=== PATIENT | female | born 1965 | race Caucasian/White ===

== ENCOUNTER → 2018-05-31 11:38 | Outpatient (CLI) | payer OTHER, SELFPAY ==
[2018-05-31 12:18] LABS: Add Manual Diff / Slide Review NO; Basophils Absolute Auto 0 /uL (0-100); Basophils Percent Auto 0.6 % (0-2); Eosinophils Absolute Auto 100 /uL (0-450); Eosinophils Percent Auto 1.8 % (2-4); Hematocrit 43.5 % (36-46); Hemoglobin 14.7 g/dL (12.0-16.0); Lymphocytes Absolute Auto 2300 /uL (1100-4500); Lymphocytes Percent Auto 34.9 % (25-40); Mean Corpuscular HGB Conc 33.7 % (30-36); Mean Corpuscular Hemoglobin 29.8 PG (26-34); Mean Corpuscular Volume 88.4 fL (80-100); Monocytes Absolute Auto 500 /uL (0-900); Monocytes Percent Auto 7.8 % (3-14); Neutrophils Absolute Auto 3600 /uL (1500-7000); Neutrophils Percent Auto 54.9 % (50-75); Platelet Count 250 X10^3/uL (150-400); Red Blood Cell Count 4.93 X10^6/uL (4.0-5.2); Red Cell Distribution Width 13.5 % (11.6-14.8); White Blood Cell Count 6.5 X10^3/uL (4.5-11.0)
[2018-05-31 12:44] LABS: Alanine Aminotransferase 24 IU/L (9-52); Albumin 4.4 g/dL (3.5-5.0); Albumin Globulin Ratio 1.5 (1.0-2.8); Alkaline Phosphatase 89 U/L (38-126); Aspartate Aminotransferase 25 IU/L (14-36); Bilirubin Total 0.3 mg/dL (0.2-1.3); Blood Urea Nitrogen 14 mg/dL (7-17); Calcium 9.3 mg/dL (8.4-10.2); Carbon Dioxide 23 mmol/L (22-32); Chloride 103 mmol/L (98-107); Cholesterol 200 mg/dL (140-199); Estimated Glomerular Filt Rate > 60.0 mL/min (>60); Globulin 2.9 g/dL (1.7-4.1); Glucose 95 mg/dL (70-100); HDL Cholesterol 83 mg/dL (40-60); HEMOLYSIS < 15 (0-50); LDL Cholesterol Calculated 92 mg/dL (<100); Potassium 4.3 mmol/L (3.4-5.1); Sodium 136 mmol/L (137-145); Total Protein 7.3 g/dL (6.3-8.2); Triglycerides 123 mg/dL (35-150)
[2018-05-31 13:13] LABS: TSH w/ Reflex to FT4 2.41 uIU/mL (0.47-4.68)
[2018-05-31 16:02] LABS: Vitamin D 25 Hydroxy (D3) 22.9 ng/mL (30.0-100.0)
== END ==
PROVIDERS: Visit Provider Internal Medicine
DX: Z00.00 Encounter for general adult medical examination without abnormal findings (principal); F32.5 Major depressive disorder, single episode, in full remission; R35.0 Frequency of micturition; E55.9 Vitamin D deficiency, unspecified
CPT/HCPCS: 36415; 80053; 80061; 82306; 84443; 85025

== ENCOUNTER → 2018-06-27 10:08 | Outpatient (CLI) | payer OTHER, SELFPAY ==
--- NOTE | 2018-06-27 | DI.MG.S_ITS ---
BILATERAL DIGITAL SCREENING MAMMOGRAM 3D/2D WITH CAD: 06/27/2018 CLINICAL: Routine screening. Comparison is made to exams dated: 06/22/2012 mammogram and 03/05/2010 mammogram - [facility]. There are scattered fibroglandular elements in both breasts. Current study was also evaluated with a Computer Aided Detection (CAD) system. No significant masses, calcifications, or other findings are seen in either breast. There has been no significant interval change. IMPRESSION: NEGATIVE There is no mammographic evidence of malignancy. A 1 year screening mammogram is recommended. This exam was interpreted at Station ID: [id number]. NOTE: For mammograms, a report in lay terms will be sent to the patient. Approximately 15% of breast malignancies will not be visualized mammographically. In the management of a palpable breast mass, a negative mammogram must not discourage biopsy of a clinically suspicious lesion. Electronically Signed By: Kimmie benavides/sam:06/27/2018 15:33:43 letter sent: Normal Exam ACR BI-RADS Category 1: Negative [id number]
== END ==
PROVIDERS: Visit Provider Internal Medicine
DX: Z00.00 Encounter for general adult medical examination without abnormal findings (principal); Z12.31 Encounter for screening mammogram for malignant neoplasm of breast; M85.88 Other specified disorders of bone density and structure, other site; Z78.0 Asymptomatic menopausal state; Z82.62 Family history of osteoporosis; Z90.722 Acquired absence of ovaries, bilateral; Z90.710 Acquired absence of both cervix and uterus
CPT/HCPCS: 77063; 77067; 77080; 77081

== ENCOUNTER → 2018-07-06 12:19 | Outpatient (CLI) | payer OTHER, SELFPAY ==
--- NOTE | 2018-07-06 | DI.RAD.S_ITS ---
PROCEDURE: XR HAND RT MIN 3V INDICATIONS: RIGHT HAND PAIN TECHNIQUE: 3 views of the hand(s) acquired. COMPARISON: None. FINDINGS: Bones: No fractures or dislocations there is a mild degree of degenerative osteophytic joint space narrowing along the interphalangeal joints distally.. Carpal bones are normally aligned. No suspicious bony lesions. Soft tissues: No suspicious soft tissue calcifications. IMPRESSION: Mild osteoarthritis, no trauma found. Dictated by: Marcus Drake M.D. on 07/06/2018 at 13:19 Approved by: Marcus Drake M.D. on 07/06/2018 at 13:20
== END ==
PROVIDERS: PCP Internal Medicine; Visit Provider Internal Medicine
DX: M79.641 Pain in right hand (principal); M19.041 Primary osteoarthritis, right hand
CPT/HCPCS: 73130

== ENCOUNTER 2018-07-25 06:20 | Emergency (ER) | payer OTHER, SELFPAY ==
[2018-07-25 06:26] VITALS: BP 145/80; PULSE 94; RESP 20; TEMP 36.8; O2SAT 97; BMI 32.3
--- NOTE | 2018-07-25 06:32 | DI.RAD.S_ITS ---
PROCEDURE: XR CHEST 1V INDICATIONS: Coughing for several days TECHNIQUE: One view of the chest was acquired. COMPARISON: None. FINDINGS: Surgical changes and devices: Cervical fixation hardware is grossly intact. Lungs and pleura: Lungs are clear. No pleural effusions or pneumothorax. Mediastinum: Mediastinal contours appear normal. Heart size is normal. Bones and chest wall: Focal radiopacity projected over the right upper quadrant may represent a gallstone, but is incompletely characterized. IMPRESSION: 1. No acute cardiopulmonary findings. 2. Probable cholelithiasis, incompletely characterized. Right upper quadrant ultrasound could be used to further characterization is warranted. Dictated by: Alicia Dyer M.D. on 07/25/2018 at 8:56 Approved by: Alicia Dyer M.D. on 07/25/2018 at 8:58
--- NOTE | 2018-07-25 06:39 | ED.URI ---
HPI - URI/Sore Throat General Chief Complaint: Upper Respiratory Symptoms Stated Complaint: Trouble breathing, cough Time Seen by Provider: 07/25/18 06:32 Source: patient Mode of arrival: ambulatory Limitations: no limitations History of Present Illness HPI Narrative: Patient is a 52-year-old female here for evaluation approximately 7 days of sinus congestion, postnasal drip, productive cough, had chest heaviness, chest tightness, she has been taking Claritin D and Mucinex. No rashes. Related Data Previous Rx's Medication Instructions Recorded albuterol sulfate 2 puff INHALATION Q4-6H PRN #18 07/25/18 gram azithromycin See Rx Instructions .ROUTE 07/25/18 .COMPLEX #6 tab Review of Systems Constitutional Reports malaise Cardiovascular Denies chest pain Respiratory Comments: Chest congestion with cough and heaviness Gastrointestinal Gastrointestinal: Denies abdominal pain Integumentary/Breasts Denies rash Hematologic/Lymphatic Denies easy bleeding and Denies easy bruising PFSH Surgical History No pertinent past surgical history (Acute) Social History Smoking Status: Never smoker Social History Smoking Status: Never smoker Exam Initial Vital Signs Initial Vital Signs: Vital Signs Temperature 98.2 F 07/25/18 06:26 Pulse Rate 94 H 07/25/18 06:26 Respiratory Rate 20 07/25/18 06:26 Blood Pressure 145/80 H 07/25/18 06:26 Pulse Oximetry 97 07/25/18 06:26 Const General: cooperative, comfortable, well developed, well groomed and No acute distress Orientation: alert, awake and oriented x3 HENMT Head: normal to inspection and normocephalic Ears: TM's normal bilaterally Nose: external nose normal Face and sinus: normal facial exam Throat: other (Posterior oropharynx red) Resp Effort & Inspection: normal respiratory effort Auscultation: clear to auscultation bilaterally Cardio Rate: regular rate Rhythm: regular rhythm Skin Lesions: no lesions Rashes: no rashes Neuro General: alert and awake Cognition: normal cognition Extrem General: normal to inspection and capillary refill normal Psych Appearance: grossly normal and well kempt Course Orders Ordered: ED Orders 07/25/18 06:32 XR chest 1V Stat Vital Signs - 8 hr 07/25/18 06:26 Temperature 98.2 F Pulse Rate 94 H Respiratory Rate 20 Blood Pressure 145/80 H Pulse Oximetry 97 MDM - URI/Sore Throat Imaging Data Chest x-ray: Attestation: I personally reviewed and interpreted this imaging study as follows: My impression: Atypical pneumonia MDM Narrative Medical decision making narrative: Patient is not hypoxic, not tachypneic, chest x-ray does have some concern for an atypical pneumonia. She has been on decongestants. Will send home with azithromycin. She states she is allergic to erythromycin but can take azithromycin without any problems. She is given return precautions. She expressed understanding and agreement with plan. Discharge Plan Departure Patient Disposition: Home Clinical Impression: Atypical pneumonia Instructions: DI for Atypical Pneumonia Activity Restrictions/Additional Instructions: Take the antibiotics as directed. Call your primary doctor for follow-up. Return to the emergency department for any new or worsening symptoms Prescriptions: New azithromycin 250 mg tablet See Rx Instructions .ROUTE .COMPLEX Qty: 6 RF: 0 albuterol sulfate 90 mcg/actuation HFA aerosol inhaler 2 puff INHALATION Q4-6H PRN (Reason: shortness of breath or wheezing) Qty: 18 RF: 0 Referrals: Radha Tan MD [Primary Care Provider] -
== END 2018-07-25 07:50 | disposition home or self-care (01) ==
PROVIDERS: Emergency Provider Emergency Medicine; PCP Internal Medicine
DX: J18.9 Pneumonia, unspecified organism (principal)
CPT/HCPCS: 71045; 99282; 99283

== ENCOUNTER → 2018-11-15 18:29 | Outpatient (CLI) | payer OTHER, SELFPAY | PROVIDERS: PCP Internal Medicine | DX: Z23 Encounter for immunization (principal) | CPT/HCPCS: 90471; 90686 ==

== ENCOUNTER → 2018-11-22 11:59 | Outpatient (ROUT) | payer OTHER, SELFPAY ==
[2018-11-22 12:23] LABS: Influenza A and B by PCR Rapid Negative (Negative)
== END ==
PROVIDERS: PCP Internal Medicine; Visit Provider Nurse Practitioner Family
DX: R52 Pain, unspecified (principal); R09.89 Other specified symptoms and signs involving the circulatory and respiratory systems
CPT/HCPCS: 87400; 87502

== ENCOUNTER 2019-07-10 12:47 | Emergency (ER) | payer OTHER, SELFPAY ==
[2019-07-10 13:00] VITALS: BP 139/62; PULSE 107; RESP 20; TEMP 36.9; O2SAT 98; BMI 32.3
[2019-07-10 13:24] VITALS: PULSE 84
--- NOTE | 2019-07-10 13:50 | ED_ITS ---
HPI - GI Bleed <LOKI Pastor - Last Filed: 07/10/19 21:22> General Chief complaint: GI Bleed Stated complaint: rectum bleeding Time Seen by Provider: 07/10/19 12:56 Source: patient Mode of arrival: Ambulatory Limitations: no limitations History of Present Illness HPI Narrative: 53yo female with a history of a hysterectomy, IBS, and family history of colon cancer on her mother's side, presents emergency department for rectal bleeding. Patient states she has had intermittent bright red blood in her stool for the past 9 months. Patient states originally she just found a blood on the toilet paper after having a bowel movement approximately once every 3 weeks. However, frequency and amount of blood have increased over the past few weeks. Patient states she had a bowel movement on Monday with a large amount of bright red blood in the toilet and on the toilet paper. Today she went to the bathroom and noticed red blood and blood clots, patient reports a small amount of blood tripped on the floor. Patient states she tends to have more blood when her stools are larger. Patient denies any other symptoms such as abdominal pain, nausea, vomiting, diarrhea, chest pain, shortness of breath, constipation, diarrhea, or mucus in stools. She states she does have IBS has in termittent soft stools and constipation. She last had a colonoscopy approximately 7 8 years ago without any concern. Patient states she does take Benadryl, melatonin, and ibuprofen every night for the past few years. Related Data Previous Rx's Medication Instructions Recorded albuterol sulfate 2 puff INHALATION Q4-6H PRN #18 07/25/18 gram azithromycin See Rx Instructions .ROUTE 07/25/18 .COMPLEX #6 tab Review of Systems <LOKI Pastor - Last Filed: 07/10/19 21:22> Review of Systems Narrative: REVIEW OF SYSTEMS: GENERAL: Denies fever, chills, malaise, or wt. loss. HENT: No head trauma. CARDIOVASCULAR: No chest pain. RESPIRATORY: No shortness of breath or cough. GASTROINTESTINAL: Reports rectal bleeding, see HPI. GENITOURINARY: No flank pain or dysuria. No vaginal discharge, reports hysterectomy, see HPI. MUSCULOSKELETAL: No pain, weakness, or trauma. INTEGUMENTARY: No rash, lesions, or pruritus. NEURO: No numbness, tingling. PSYCH: Patient reports increased anxiety due to family history of cancer, see HPI. Patient History <LOKI Pastor - Last Filed: 07/10/19 21:22> Surgical History History of hysterectomy (Acute) No pertinent past surgical history (Acute) Social History Smoking Status: Never smoker Smoking Status: Never smoker Substance Use Type: does not use Exam <LOKI Pastor - Last Filed: 07/10/19 21:22> Initial Vital Signs Initial Vital Signs: Vital Signs Temperature 98.5 F 07/10/19 13:00 Pulse Rate 107 H 07/10/19 13:00 Respiratory Rate 07/10/19 13:00 Blood Pressure 139/62 07/10/19 13:00 Pulse Oximetry 98 07/10/19 13:00 PHYSICAL EXAMINATION: GENERAL: Well groomed, alert, and cooperative. Patient tearful and appears anxious. Answers questions promptly and appropriately. Vital signs noted. HENT: Normocephalic, atraumatic. Hearing intact. Oral mucosa is pink and moist. EYES: Conjunctiva pink, sclera white, no periorbital swelling. CARDIOVASCULAR: S1 and S2 sounds normal. Regular rate and rhythm, no murmurs, clicks, or bruits. No pedal edema. RESPIRATORY: Normal respiratory rate, trachea midline, airway patent. No stridor, nasal flaring or accessory muscle use. Lungs are clear in all lopes without wheeze, rhonchi, or crackles. GASTROINTESTINAL: Bowel sounds normoactive. Abdomen is soft and non-tender. No organomegaly, no palpable masses. RECTAL: No external hemorrhoids or fissures, small amount of bright red blood noted around and in rectum, tenderness with examination. GENITALURINARY: No flank tenderness. MUSCULOSKELETAL: Normal gait and coordination. Equal tone and mass bilaterally. EXTREMITIES: CMS intact, no pedal edema. SKIN: Warm, dry, soft, appropriate color for ethnicity. No lesions, rashes, or wounds to visualized areas. NEURO: Alert and Oriented X 3. Good coordination. No ataxia, or sensory deficits, or cognitive issues. PSYCH: Appropriate affect and mood. <Lui Borges DO - Last Filed: 07/11/19 07:08> Initial Vital Signs Initial Vital Signs: Vital Signs Temperature 98.5 F 07/10/19 13:00 Pulse Rate 107 H 07/10/19 13:00 Respiratory Rate 20 07/10/19 13:00 Blood Pressure 139/62 07/10/19 13:00 Pulse Oximetry 98 07/10/19 13:00 Course <LOKI Pastor - Last Filed: 07/10/19 21:22> Course Course Narrative: Patient was updated on plan of care, denies any continuing pain. Explained follow-up instructions. All questions answered. Orders Ordered: Discontinued Medications Pantoprazole Sodium (Protonix) 80 mg IV NOW ONE Stop: 07/10/19 13:34 Last Admin: 07/10/19 14:05 Dose: 80 mg Documented by: ELMA Consultations Consultation #1: Patient staffed with Dr. Borges discussed test and test results. Vital Signs Vital signs: Vital Signs - 8 hr 07/10/19 13:24 07/10/19 14:28 07/10/19 15:12 Temperature 97.4 F L Pulse Rate 84 74 78 Respiratory Rate 16 18 Blood Pressure 138/72 Blood Pressure [Left Arm] 134/64 Pulse Oximetry 99 99 <Lui Borges DO - Last Filed: 07/11/19 07:08> Orders Ordered: Discontinued Medications Pantoprazole Sodium (Protonix) 80 mg IV NOW ONE Stop: 07/10/19 13:34 Last Admin: 07/10/19 14:05 Dose: 80 mg Documented by: ELMA Vital Signs Vital signs: Vital Signs - 8 hr 07/10/19 13:24 07/10/19 14:28 07/10/19 15:12 Temperature 97.4 F L Pulse Rate 84 74 78 Respiratory Rate 16 18 Blood Pressure 138/72 Blood Pressure [Left Arm] 134/64 Pulse Oximetry 99 99 MDM - GI Bleed <LOKI Pastor - Last Filed: 07/10/19 21:22> Medical Records Attestation: I reviewed the patient's medical records. Lab Data Attestation: I reviewed the patient's lab results. Result diagrams: 07/10/19 13:45 07/10/19 13:45 Labs: Lab Results 07/10/19 07/10/19 07/10/19 Range/Units 13:45 13:45 13:45 WBC 5.0 (4.5-11.0) X10^3/uL RBC 4.49 (4.0-5.2) X10^6/uL Hgb 13.6 (12.0-16.0) g/dL Hct 39.6 (36-46) % MCV 88.3 (80-100) fL MCH 30.2 (26-34) PG MCHC 34.2 (30-36) % RDW 13.4 (11.6-14.8) % Plt Count 231 (150-400) X10^3/uL Neut % (Auto) 58.3 (50-75) % Lymph % (Auto) 31.3 (25-40) % Independence % (Auto) 7.0 (3-14) % Eos % (Auto) 2.6 (2-4) % Baso % (Auto) 0.8 (0-2) % Neut # (Auto) 2900 (0895-5251) /uL Lymph # (Auto) 1600 (6175-5342) /uL Independence # (Auto) 300 (0-900) /uL Eos # (Auto) 100 (0-450) /uL Baso # (Auto) 0 (0-100) /uL PT 10.7 (10.1-12.7) SECONDS INR 0.9 (0.9-1.3) APTT 30 (26.4-36.2) SECONDS Sodium 140 (137-145) mmol/L Potassium 3.8 (3.4-5.1) mmol/L Chloride 108 H (98-107) mmol/L Carbon Dioxide 24 (22-32) mmol/L BUN 21 H (7-17) mg/dL Creatinine 0.78 (0.52-1.04) mg/dL Estimated GFR > 60.0 (>60) mL/min BUN/Creatinine Ratio 26.9 H (6-22) Glucose 144 H (70-100) mg/dL Calcium 9.2 (8.4-10.2) mg/dL Total Bilirubin 0.3 (0.2-1.3) mg/dL AST 27 (14-36) IU/L ALT 20 (<35) IU/L Alkaline Phosphatase 88 (38-126) U/L Total Protein 7.1 (6.3-8.2) g/dL Albumin 4.0 (3.5-5.0) g/dL Globulin 3.1 (1.7-4.1) g/dL Albumin/Globulin Ratio 1.3 (1.0-2.8) Blood Type Antibody Screen 07/10/19 Range/Units 13:45 WBC (4.5-11.0) X10^3/uL RBC (4.0-5.2) X10^6/uL Hgb (12.0-16.0) g/dL Hct (36-46) % MCV (80-100) fL MCH (26-34) PG MCHC (30-36) % RDW (11.6-14.8) % Plt Count (150-400) X10^3/uL Neut % (Auto) (50-75) % Lymph % (Auto) (25-40) % Independence % (Auto) (3-14) % Eos % (Auto) (2-4) % Baso % (Auto) (0-2) % Neut # (Auto) (3125-1248) /uL Lymph # (Auto) (1163-8986) /uL Independence # (Auto) (0-900) /uL Eos # (Auto) (0-450) /uL Baso # (Auto) (0-100) /uL PT (10.1-12.7) SECONDS INR (0.9-1.3) APTT (26.4-36.2) SECONDS Sodium (137-145) mmol/L Potassium (3.4-5.1) mmol/L Chloride (98-107) mmol/L Carbon Dioxide (22-32) mmol/L BUN (7-17) mg/dL Creatinine (0.52-1.04) mg/dL Estimated GFR (>60) mL/min BUN/Creatinine Ratio (6-22) Glucose (70-100) mg/dL Calcium (8.4-10.2) mg/dL Total Bilirubin (0.2-1.3) mg/dL AST (14-36) IU/L ALT (<35) IU/L Alkaline Phosphatase (38-126) U/L Total Protein (6.3-8.2) g/dL Albumin (3.5-5.0) g/dL Globulin (1.7-4.1) g/dL Albumin/Globulin Ratio (1.0-2.8) Blood Type O Positive Antibody Screen Negative MDM Narrative Medical decision making narrative: 53-year-old female presenting to the emergency department for intermittent bright red rectal bleeding. Differential includes internal hemorrhoids versus fissures due to intermittent episodes of bright red blood that occur only with stooling, increased blood with large stools, history of IBS, and lack of other severe symptoms such as abdominal pain or vomiting. External hemorrhoids or fissures not visualized. Malignancy cannot be excluded without a colonoscopy, patient does have a strong family history but denies other concerning symptoms such as pain, difficulty with passing stool, or feeling incomplete passage of stool. Less likely upper GI bleed due to lack of dark red appearance, blood only appears after formed stool, lack of abdominal pain, and lack of vomiting. However, patient does report she takes and ibuprofen almost every night due to pain. She was encouraged to discontinue the ibuprofen and take Tylenol if needed for pain. Less likely autoimmune disorders such as colitis or Crohn's due to lack of abdominal pain, significant stool changes, or history of autoimmune disorders. Patient is hemodynamically stable, H&H within normal limits, no orthostatics symptoms and there is less concern for excessive bleeding due to prolonged duration of symptoms, vital signs, patient appearance and labs. Patient was safe for discharge with close follow-up. CT not indicated due to lack of abdominal pain. Patient was encouraged to follow up with her primary care provider or the surgeons for colonoscopy for further evaluation of her rectal bleeding.. <Lui Borges, DO - Last Filed: 07/11/19 07:08> Lab Data Labs: Lab Results 07/10/19 07/10/19 07/10/19 Range/Units 13:45 13:45 13:45 WBC 5.0 (4.5-11.0) X10^3/uL RBC 4.49 (4.0-5.2) X10^6/uL Hgb 13.6 (12.0-16.0) g/dL Hct 39.6 (36-46) % MCV 88.3 (80-100) fL MCH 30.2 (26-34) PG MCHC 34.2 (30-36) % RDW 13.4 (11.6-14.8) % Plt Count 231 (150-400) X10^3/uL Neut % (Auto) 58.3 (50-75) % Lymph % (Auto) 31.3 (25-40) % Independence % (Auto) 7.0 (3-14) % Eos % (Auto) 2.6 (2-4) % Baso % (Auto) 0.8 (0-2) % Neut # (Auto) 2900 (9875-0008) /uL Lymph # (Auto) 1600 (3561-0862) /uL Independence # (Auto) 300 (0-900) /uL Eos # (Auto) 100 (0-450) /uL Baso # (Auto) 0 (0-100) /uL PT 10.7 (10.1-12.7) SECONDS INR 0.9 (0.9-1.3) APTT 30 (26.4-36.2) SECONDS Sodium 140 (137-145) mmol/L Potassium 3.8 (3.4-5.1) mmol/L Chloride 108 H (98-107) mmol/L Carbon Dioxide 24 (22-32) mmol/L BUN 21 H (7-17) mg/dL Creatinine 0.78 (0.52-1.04) mg/dL Estimated GFR > 60.0 (>60) mL/min BUN/Creatinine Ratio 26.9 H (6-22) Glucose 144 H (70-100) mg/dL Calcium 9.2 (8.4-10.2) mg/dL Total Bilirubin 0.3 (0.2-1.3) mg/dL AST 27 (14-36) IU/L ALT 20 (<35) IU/L Alkaline Phosphatase 88 (38-126) U/L Total Protein 7.1 (6.3-8.2) g/dL Albumin 4.0 (3.5-5.0) g/dL Globulin 3.1 (1.7-4.1) g/dL Albumin/Globulin Ratio 1.3 (1.0-2.8) Blood Type Antibody Screen 07/10/19 Range/Units 13:45 WBC (4.5-11.0) X10^3/uL RBC (4.0-5.2) X10^6/uL Hgb (12.0-16.0) g/dL Hct (36-46) % MCV (80-100) fL MCH (26-34) PG MCHC (30-36) % RDW (11.6-14.8) % Plt Count (150-400) X10^3/uL Neut % (Auto) (50-75) % Lymph % (Auto) (25-40) % Independence % (Auto) (3-14) % Eos % (Auto) (2-4) % Baso % (Auto) (0-2) % Neut # (Auto) (3334-3233) /uL Lymph # (Auto) (3622-7734) /uL Independence # (Auto) (0-900) /uL Eos # (Auto) (0-450) /uL Baso # (Auto) (0-100) /uL PT (10.1-12.7) SECONDS INR (0.9-1.3) APTT (26.4-36.2) SECONDS Sodium (137-145) mmol/L Potassium (3.4-5.1) mmol/L Chloride (98-107) mmol/L Carbon Dioxide (22-32) mmol/L BUN (7-17) mg/dL Creatinine (0.52-1.04) mg/dL Estimated GFR (>60) mL/min BUN/Creatinine Ratio (6-22) Glucose (70-100) mg/dL Calcium (8.4-10.2) mg/dL Total Bilirubin (0.2-1.3) mg/dL AST (14-36) IU/L ALT (<35) IU/L Alkaline Phosphatase (38-126) U/L Total Protein (6.3-8.2) g/dL Albumin (3.5-5.0) g/dL Globulin (1.7-4.1) g/dL Albumin/Globulin Ratio (1.0-2.8) Blood Type O Positive Antibody Screen Negative Discharge Plan Departure Patient Disposition: Home Clinical Impression: Rectal bleed Discharge Date/Time: 07/10/19 15:12 Instructions: DI for Rectal Bleeding Activity Restrictions/Additional Instructions: Thank you for entrusting me with your care today. As discussed, Your laboratory results are non-remarkable. Slightly increased glucose at 144 and BUN of 21, this can most likely be to some mild dehydration and recent oral intake. However, I do recommend following up with your primary care provider about these lab values. Please discontinue taking ibuprofen, Advil, Aleve, or naproxen. You may take Tylenol as needed for pain. Please call the surgeon's office to schedule an appointment. [facility]: [phone]. Return to the emergency department for any new or worsening symptoms such as abdominal pain, increased bleeding, dizziness, syncope, chest pain, fevers, or any other concerns. Prescriptions: No Action azithromycin 250 mg tablet See Rx Instructions .ROUTE .COMPLEX Qty: 6 RF: 0 albuterol sulfate 90 mcg/actuation HFA aerosol inhaler 2 puff INHALATION Q4-6H PRN (Reason: shortness of breath or wheezing) Qty: 18 RF: 0 Referrals: Jean Juarez MD [Physician] - (Referral for colonoscopy, rectal bleeding x 9months, worse in last few weeks, no external hemorrhoids. Family history of colon cancer.) Adriana Cervantes ARNP [Primary Care Provider] - Stand Alone Forms: Work Release Note <Lui Borges, - Last Filed: 07/11/19 07:08> Cosign ED Attending Cosignature Attestation: Dr Borges Co-Sign Statement: I was available for consultation during this patient's emergency department visit. This chart is signed by myself for administrative purposes only. I did not have direct contact with this patient during this visit. They were seen independently by the APC.
[2019-07-10 13:53] LABS: Add Manual Diff / Slide Review NO; Basophils Absolute Auto 0 /uL (0-100); Basophils Percent Auto 0.8 % (0-2); Eosinophils Absolute Auto 100 /uL (0-450); Eosinophils Percent Auto 2.6 % (2-4); Hematocrit 39.6 % (36-46); Hemoglobin 13.6 g/dL (12.0-16.0); Lymphocytes Absolute Auto 1600 /uL (1100-4500); Lymphocytes Percent Auto 31.3 % (25-40); Mean Corpuscular HGB Conc 34.2 % (30-36); Mean Corpuscular Hemoglobin 30.2 PG (26-34); Mean Corpuscular Volume 88.3 fL (80-100); Monocytes Absolute Auto 300 /uL (0-900); Neutrophils Absolute Auto 2900 /uL (1500-7000); Neutrophils Percent Auto 58.3 % (50-75); Platelet Count 231 X10^3/uL (150-400); Red Blood Cell Count 4.49 X10^6/uL (4.0-5.2); Red Cell Distribution Width 13.4 % (11.6-14.8)
[2019-07-10 14:00] LABS: INR 0.9 (0.9-1.3); Prothrombin Time 10.7 SECONDS (10.1-12.7)
[2019-07-10 14:03] LABS: PTT Partial Thromboplastin Tim 30 SECONDS (26.4-36.2)
[2019-07-10 14:05] LABS: Alanine Aminotransferase 20 IU/L (<35); Albumin Globulin Ratio 1.3 (1.0-2.8); Alkaline Phosphatase 88 U/L (38-126); Aspartate Aminotransferase 27 IU/L (14-36); BUN Creatinine Ratio 26.9 (6-22); Bilirubin Total 0.3 mg/dL (0.2-1.3); Blood Urea Nitrogen 21 mg/dL (7-17); Calcium 9.2 mg/dL (8.4-10.2); Carbon Dioxide 24 mmol/L (22-32); Chloride 108 mmol/L (98-107); Estimated Glomerular Filt Rate > 60.0 mL/min (>60); Globulin 3.1 g/dL (1.7-4.1); Glucose 144 mg/dL (70-100); HEMOLYSIS < 15 (0-50); Potassium 3.8 mmol/L (3.4-5.1); Sodium 140 mmol/L (137-145); Total Protein 7.1 g/dL (6.3-8.2)
[2019-07-10] MEDS: PANTOPRAZOLE 40 MG VIAL 80 MG IV (14:05)
[2019-07-10 14:28] VITALS: BP 134/64; PULSE 74; RESP 16; O2SAT 99
--- NOTE | 2019-07-10 14:29 | PC.NURSE ---
Sarmad performed rectal exam - bright blood noted on gloves;
[2019-07-10 15:12] VITALS: BP 138/72; PULSE 78; RESP 18; TEMP 36.3; O2SAT 99
== END 2019-07-10 15:12 | disposition home or self-care (01) ==
PROVIDERS: Emergency Provider Nurse Practitioner; PCP Internal Medicine
DX: K62.5 Hemorrhage of anus and rectum (principal)
CPT/HCPCS: 36415; 80053; 85025; 85610; 85730; 86850; 86900; 86901; 96374; 99284; C9113

== ENCOUNTER 2019-07-22 13:59 | Day surgery (SDC) | payer OTHER, SELFPAY ==
--- NOTE | 2019-07-22 | PATH_ITS ---
[facility] Accession Number: [id number] . 01 Material submitted: . PART A: duodenum - DUODENUM PART B: stomach - ANTRUM PART C: stomach - FUNDUS PART D: gastrointestinal site - BODY PART E: esophagus - DISTAL ESOPHAGUS PART F: esophagus, E-G Junction - GE JUNCTION 12 O'CLOCK PART G: colon - ASCENDING COLON POLYP 2MM . 01 Diagnosis: A. Duodenum, Biopsy: Duodenal mucosa with no diagnostic abnormality. Negative for active inflammation, features of sprue, dysplasia, or malignancy. . B. Antrum, Biopsy: Gastric antral mucosa with mild chronic inflammation and intestinal metaplasia. Intestinal metaplasia present in one of one biopsy fragments. Negative for Helicobacter organism by immunohistochemistry. Negative for dysplasia or malignancy. . C. Fundus, Biopsy: Gastric body-type mucosa with mild chronic inflammation. No evidence of Helicobacter organisms on H/E stain. Negative for intestinal metaplasia. Negative for dysplasia or malignancy. . D. Stomach, Body, Biopsy: Gastric body mucosa with mild chronic inflammation. Negative for Helicobacter organisms by immunohistochemistry. Negative for intestinal metaplasia. Negative for dysplasia or malignancy. . E. Distal Esophagus, Biopsy: Proximal gastric-type mucosa with mild chronic inflammation. Negative for specialized intestinal metaplasia. Negative for dysplasia or malignancy. . F. Gastroesophageal Junction, 12 o'clock, Biopsy: Squamous epithelium with no diagnostic abnormality. No columnar mucosa present for evaluation. Intraepithelial eosinophils are not increased. Negative for dysplasia and malignancy. . G. Ascending Colon Polyp, 2 mm, Biopsy: Tubular adenoma. [facility] 07/25/2019 1356 Local . 01 Electronically signed: . Seamus Ceron MD, PhD, Pathologist NPI- [id number] . 01 Gross description: . Part A: DUODENUM: Received in formalin is 1 fragment(s) of ortiz, soft tissue measuring 0.3 x 0.2 x 0.1 cm submitted entirely in 1 cassette(s) Part B: ANTRUM: Received in formalin is 1 fragment(s) of ortiz, soft tissue measuring 0.3 x 0.1 x 0.1 cm submitted entirely in 1 cassette(s) Part C: FUNDUS: Received in formalin are 2 fragment(s) of ortiz, soft tissue measuring 0.6 x 0.2 x 0.1 cm to 0.2 x 0.2 x 0.1 cm submitted entirely in 1 cassette(s) Part D: BODY: Received in formalin are 2 fragment(s) of ortiz, soft tissue measuring 0.3 x 0.3 x 0.1 cm to 0.1 x 0.1 x 0.1 cm submitted entirely in 1 cassette(s) Part E: DISTAL ESOPHAGUS: Received in formalin is 1 fragment(s) of ortiz, soft tissue measuring 0.2 x 0.2 x 0.2 cm submitted entirely in 1 cassette(s) Part F: GE JUNCTION 12 O'CLOCK: Received in formalin are minute fragment(s) of ortiz, soft tissue measuring 0.2 x 0.2 x 0.1 cm in aggregate submitted entirely in 1 cassette(s) Part G: ASCENDING COLON POLYP 2MM: Received in formalin is 1 fragment(s) of ortiz, soft tissue measuring 0.2 x 0.2 x 0.2 cm submitted entirely in 1 cassette(s) /QBJ 07/23/2019 0750 Local . 01 Microscopic: . B. An immunohistochemical stain was performed to evaluate for Helicobacter organisms and is negative. The control stain showed appropriate reactivity. . D. An immunohistochemical stain was performed to evaluate for Helicobacter organisms and is negative. The control stain showed appropriate reactivity. . . * This test was developed and its performance characteristics determined by [facility]. It has not been cleared or approved by the U.S. Food and Drug Administration. The FDA has determined that such clearance or approval is not necessary. This test is used for clinical purposes. It should not be regarded as investigational or for research. . 01 Pathologist provided ICD-10: K29.70, K31.9, D12.2, K20.9 . 01 CPT . 384570, 466913, 582456, 813732, 848170, 116447, 941540, [id number] Performed at: 01 [facility] [address], [place], [place] [id number] MD Hans Martinez MD Phone: [phone]
--- NOTE | 2019-07-22 12:26 | PM.OP.ENDO ---
Operative Date/Time/Diagnoses Date of procedure: 07/22/19 Time of procedure: 16:26 Pre-op diagnosis: 1. Bright red bleeding per rectum Post-op diagnosis: other (1. Antritis, 2. Irregular Z-line, 3. Possible yeast esophagitis) Procedure & Clinicians Study performed: EGD Same procedure as scheduled: Yes Indications: 1. Bright red bleeding per rectum Surgeon: Ramona Ingram Procedure Notes SCOAP/Timeout: 4:50 p.m. Procedure in detail: ENDOSCOPIST: Ramona Ingram MD Sedation RN: Nicole Hunter RN Sedation start time: 4:16 p.m. Sedation end time: 4:36 p.m. PROCEDURE: EGD with biopsy INDICATIONS: 1. Bright red bleeding per rectum MEDICATION: Incremental doses of Versed and fentanyl until an appropriate level of sedation was achieved. ASA Ratin DURATION OF PROCEDURE: 10 minutes. COMPLICATIONS: None. LIMITATIONS: None EXTENT OF PROCEDURE: Third portion of the Duodenum. PROCEDURE: The high-definition gastroduodenoscope was introduced into the posterior oropharynx under direct vision after Hurricaine spray, noted IV sedation, and proper informed consent. The esophagus was identified and intubated under direct visualization. The scope was quickly passed through the esophagus and into the fundus of the stomach. A clear fundal pool was aspirated. The scope was then advanced to the antrum and the pylorus was identified. The scope was passed through the pylorus into the second and third portions of the duodenum. No abnormalities were noted in the duodenum, duodenal bulb or pyloric channel. Random biopsies taken x2. The antrum had mild gastritis, targeted biopsy taken x2. J maneuver was produced. No abnormalities were noted of the proximal body, fundus or cardia. Random biopsies taken in the body and fundus. A small hiatal hernia was noted. Scope was broken out of the J maneuver and the remainder of the stomach was carefully inspected upon withdrawal and was normal. The stomach was carefully deflated of all air on withdrawal. The distal esophagus was carefully inspected and Z-line was irregular. Targeted biopsy at 12 o'clock was taken. In the distal esophagus there was a white curd-like adherent matter that had the appearance of yeast esophagitis. Targeted biopsy taken x2. The remainder of the esophagus was normal upon withdrawal. The larynx and vocal cords appeared to be unremarkable. IMPRESSION: 1. Antritis 2. Small hiatal hernia 3. Irregular Z-line 4. Possible distal esophagitis PLAN: 1. Follow-up in clinic status post pathology results. The possibility of missed lesion including a malignancy was discussed prior with the patient. Potential alarm symptoms have been discussed and should be reported by the patient immediately. Complications: none Post-procedure Recommendations: Will call with biopsy results Follow up: weeks (2) Disposition: PACU
--- NOTE | 2019-07-22 12:27 | PM.OP.ENDO ---
Operative Date/Time/Diagnoses Date of procedure: 07/22/19 Time of procedure: 16:43 Pre-op diagnosis: 1. Bright red bleeding per rectum 2. Family history of colon cancer 3. Screening for colon cancer Post-op diagnosis: other (1. Ascending polyp x1, 2 mm, removed with cold snare, 2. External hemorrhoids,3. Proctitis) Procedure & Clinicians Study performed: Colonoscopy Same procedure as scheduled: Yes Indications: 1. Bright red bleeding per rectum 2. Family history of colon cancer 3. Screening for colon cancer Surgeon: Ramona Ingram Procedure Notes SCOAP/Timeout: 4:15 p.m. Procedure in detail: ENDOSCOPIST: Ramona Ingram MD Sedation RN: Nicole Hunter RN Sedation start time: 4:43 p.m. Sedation end time: 5:14 p.m. PROCEDURE: Colonoscopy with cold snare INDICATIONS: 1. Recurrent bleeding per rectum 2. Family history of colon cancer 3. Screening for colon cancer MEDICATION: Levsin 0.125 mg sublingual, incremental doses of Versed and fentanyl until appropriate level sedation achieved. ASA CLASS: 2 CECAL WITHDRAWAL TIME: 24 minutes COMPLICATIONS: None. EXTENT OF PROCEDURE: Cecum. QUALITY OF PREP: Good with portions of liquid stool. PROCEDURE: Prior to insertion of the colonoscope, a digital rectal examination was accomplished with circumferential palpation of the distal rectal mucosa without significant findings being noted. The high-definition pediatric colonoscope was passed into the rectum in the usual fashion and advanced over to the cecum without difficulty. The ileocecal valve, appendiceal stoma, and medial wall all could be inspected and no abnormalities were seen. ASCENDING COLON: As the colonoscope was withdrawn, care was taken to expose and inspect the haustral folds and a small 2 mm polyp was removed with cold snare. HEPATIC FLEXURE: Normal no polyps, diverticula or other abnormalities. TRANSVERSE COLON: Normal no polyps, diverticula or other abnormalities. DESCENDING COLON: Normal no polyps, diverticula or other abnormalities. SIGMOID COLON: Normal no polyps, diverticula or other abnormalities. RECTUM: Normal. J maneuver was attempted but patient unable to tolerate secondary to proctitis. The remainder of the rectum was inspected and there was moderate, thrombosed external hemorrhoid disease. The scope was withdrawn. IMPRESSION: 1. Ascending polyp x1, 2 mm, removed with cold snare 2. Proctitis, moderate 3. External hemorrhoids, thrombosed, moderate PLAN: 1. Will follow-up in clinic status post pathology results. 2. Patient's bleeding is likely secondary to hemorrhoids. The possibility of a missed lesion including a malignancy has been discussed with the patient previously. Potential alarm symptoms have been discussed and should be reported immediately. Complications: none Post-procedure Recommendations: Will call with biopsy results Follow up: weeks (2) Disposition: PACU
[2019-07-22 15:02] VITALS: BP 122/79; PULSE 93; RESP 16; TEMP 36.6; O2SAT 97; BMI 31.8
[2019-07-22] MEDS: SODIUM CHLORIDE 0.9% 1,000 ML 200 ML IV (15:23)
[2019-07-22] MEDS: HYOSCYAMINE 0.125 MG TABLET PO (15:26)
[2019-07-22 17:22] VITALS: BP 110/65; PULSE 86; RESP 18; TEMP 36.2; O2SAT 95
[2019-07-22] MEDS: LIDOCAINE 4% SOLN 50 ML 20 ML TOP (17:23)
[2019-07-22] MEDS: MIDAZOLAM 5 MG/5 ML VIAL IV (17:23)
[2019-07-22] MEDS: ONDANSETRON 4 MG/2 ML INJ IV (17:24)
[2019-07-22] MEDS: fentaNYL 250 MCG/5 ML INJ IV (17:24)
[2019-07-22 17:50] VITALS: BP 110/72; PULSE 80; RESP 16; TEMP 36.7; O2SAT 96
== END 2019-07-22 18:07 | disposition home or self-care (01) ==
PROVIDERS: PCP Internal Medicine; Referring Provider Student in an Organized Health Care Education/Training Program; Visit Provider Student in an Organized Health Care Education/Training Program
PROC: 0DJ08ZZ Inspection of Upper Intestinal Tract, Via Natural or Artificial Opening Endoscopic (ICD-10-PCS; CPT 43235; principal; 2019-07-22 16:00)
PROC: 0DJD8ZZ Inspection of Lower Intestinal Tract, Via Natural or Artificial Opening Endoscopic (ICD-10-PCS; CPT 45378; 2019-07-22 16:00)
DX: D12.2 Benign neoplasm of ascending colon (principal); K64.4 Residual hemorrhoidal skin tags; J45.909 Unspecified asthma, uncomplicated; K44.9 Diaphragmatic hernia without obstruction or gangrene; K62.89 Other specified diseases of anus and rectum; K31.9 Disease of stomach and duodenum, unspecified; K29.50 Unspecified chronic gastritis without bleeding; K20.9 Esophagitis, unspecified
CPT/HCPCS: 45385; 43239; J2250; J2405; J3010

== ENCOUNTER → 2019-11-14 | Outpatient (CLI) | payer OTHER, SELFPAY | PROVIDERS: PCP Internal Medicine; Referring Provider Internal Medicine; Visit Provider Internal Medicine | DX: Z23 Encounter for immunization (principal) | CPT/HCPCS: 90471; 90686 ==

== ENCOUNTER → 2019-11-27 07:35 | Outpatient (CLI) | payer OTHER, SELFPAY ==
--- NOTE | 2019-11-27 | DI.MRI.S_ITS ---
PROCEDURE: MR CERVICAL SPINE WO CON INDICATIONS: DISC DISEASE,CERVICAL RADICULITIS TECHNIQUE: Noncontrast sagittal T1 spin echo and T2 fast spin echo, sagittal STIR, foraminal oblique sagittal T2 fast spin echo, and axial gradient echo or T2 fast spin echo through the cervical spine. COMPARISON: None. FINDINGS: Image quality: Excellent. Alignment and Curvature: Remote ACDF at C6-C7 with anterior plate and screw fixation and mature interbody fusion. Mild degenerative retrolisthesis of C5 on C6 measuring approximately 4 mm. Trace degenerative anterolisthesis of C3 on C4. Bone Marrow: Marrow demonstrates normal overall signal. Spinal Cord: Visualized spinal cord has normal size and signal. No cerebellar tonsillar herniation. Paraspinous Soft Tissues: No paravertebral masses. Prevertebral soft tissues are normal in thickness. Incidental note is made of the presence of a probable left thyroid nodule measuring approximately 2.5 cm. C2-C3: Bilateral facet hypertrophy. No canal stenosis or foraminal stenosis. C3-C4: Disc bulge. Bilateral uncovertebral joint hypertrophy. Bilateral facet hypertrophy. Moderate right foraminal narrowing with mild flattening deformity on the exiting right C4 nerve root. Mild left foraminal narrowing. C4-C5: Severe disc height loss. Posterior disc osteophyte complex indenting on the cord resulting in moderate to severe central canal stenosis. Large uncovertebral joint osteophytes. Bilateral facet hypertrophy. Severe bilateral foraminal narrowing with bilateral foraminal nerve root impingement. C5-C6: Severe disc height loss. Large broad-based posterior disc osteophyte complex indenting on the cord resulting in severe canal stenosis. Bilateral uncovertebral joint hypertrophy and facet hypertrophy. Moderate to severe right foraminal narrowing and severe left foraminal narrowing with bilateral foraminal C6 nerve root impingement. C6-C7: Fused. No canal stenosis. No foraminal stenosis. C7-T1: No central canal stenosis. Bilateral facet hypertrophy. Moderate to severe bilateral foraminal narrowing with bilateral C8 nerve root impingement. IMPRESSION: 1. Incidental note made of probable 2.5 cm left thyroid nodule. Thyroid ultrasound is suggested. 2. Remote ACDF at C6-C7. 3. Canal stenosis is moderate to severe at C4-C5 and severe at C5-C6. 4. Multilevel significant foraminal narrowing as described above. Dictated by: Chun Martinez M.D. on 11/27/2019 at 10:24 Approved by: Chun Martinez M.D. on 11/27/2019 at 10:33
== END ==
PROVIDERS: PCP Internal Medicine; Referring Provider Family Medicine; Visit Provider Family Medicine
DX: M54.12 Radiculopathy, cervical region (principal); M48.02 Spinal stenosis, cervical region; Z98.1 Arthrodesis status
CPT/HCPCS: 72141

== ENCOUNTER → 2019-12-19 07:47 | Outpatient (CLI) | payer OTHER, SELFPAY ==
[2019-12-19 15:27] LABS: Add Manual Diff / Slide Review NO; Basophils Absolute Auto 0 /uL (0-100); Basophils Percent Auto 0.7 % (0-2); Eosinophils Absolute Auto 200 /uL (0-450); Eosinophils Percent Auto 2.7 % (2-4); Hematocrit 40.4 % (36-46); Hemoglobin 13.3 g/dL (12.0-16.0); Lymphocytes Absolute Auto 2000 /uL (1100-4500); Lymphocytes Percent Auto 36.1 % (25-40); Mean Corpuscular Hemoglobin 29.6 PG (26-34); Mean Corpuscular Volume 89.8 fL (80-100); Monocytes Absolute Auto 500 /uL (0-900); Monocytes Percent Auto 9.4 % (3-14); Neutrophils Absolute Auto 2900 /uL (1500-7000); Neutrophils Percent Auto 51.1 % (50-75); Platelet Count 210 X10^3/uL (150-400); Red Cell Distribution Width 13.5 % (11.6-14.8); White Blood Cell Count 5.7 X10^3/uL (4.5-11.0)
== END ==
PROVIDERS: PCP Internal Medicine; Referring Provider Orthopaedic Surgery; Visit Provider Orthopaedic Surgery
DX: Z01.812 Encounter for preprocedural laboratory examination (principal)
CPT/HCPCS: 36415; 85025

== ENCOUNTER → 2020-01-06 10:14 | Outpatient (CLI) | payer OTHER, SELFPAY ==
[2020-01-06 12:03] LABS: COVID19 -Nasal RAPID Negative (Negative)
== END ==
PROVIDERS: PCP Internal Medicine; Visit Provider Physician Assistant
DX: Z11.59 Encounter for screening for other viral diseases (principal)
CPT/HCPCS: 87635

== ENCOUNTER 2020-01-09 06:18 | Day surgery (SDC) | payer OTHER, SELFPAY ==
[2020-01-06 12:00] VITALS: BMI 31.1
[2020-01-09] VITALS (17 sets, daily range): BP systolic 116–156; BP diastolic 44–89; PULSE 74–100; RESP 15–19; TEMP 35.8–36.7; O2SAT 93–99; BMI 30.1
[2020-01-09] MEDS: LACTATED RINGERS 1,000 ML 42 ML IV ×2 (07:00→09:58)
--- NOTE | 2020-01-09 07:27 | PM.PREOP ---
Pre-operative Note COVID-19 COVID-19 status: Negative Result date/Date tested (Pos, Neg/Pending): 01/06/20 Interval Note History & Physical reviewed/Exam performed by Physician: Yes Changes to H&P: No
[2020-01-09] MEDS: CEFAZOLIN 2 GM/100 ML FROZ.PIGGY IV ×3 (07:43→23:33)
--- NOTE | 2020-01-09 08:30 | SUR.OPER ---
Supine, head on gel donut. Arms padded with gel pads, tucked at sides, towel roll under shoulders. Safety belt at thigh. Legs uncrossed.
[2020-01-09] MEDS: BUPIVACAINE 0.25% (PF) VIAL 30 ML INJ (08:42)
[2020-01-09] MEDS: THROMBIN (RECOMBINANT) 5,000 UNIT VIAL 5000 UNIT TOP ×2 (08:43→09:31)
[2020-01-09] MEDS: SODIUM CHLORIDE 0.9% 1,000 ML, GENTAMICIN 80 MG IRR (08:44)
[2020-01-09] MEDS: ACETAMINOPHEN IV 1,000 MG/100 ML VIAL 400 MG IV (09:49)
--- NOTE | 2020-01-09 09:52 | P.OP_ITS ---
Operative Date/Time/Diagnoses Date of procedure: 01/09/20 Time of procedure: 09:52 Pre-op diagnosis: Cervical disc herniation with radiculopathy Post-op diagnosis: same Procedure & Clinicians Procedure: C4-5, C5-6 ACDF with cages Iliac crest bone graft roots Use of microscope Same procedure as scheduled: Yes Indications: [age] year old female with intractable pain from stenosis and cervical disc herniation. They had failed conservative management and requested operative intervention. Risks and benefits of surgery were discussed and appropriate consents were obtained. Surgeon: Nilson Greene Compound Specialist: Kusum London Anesthesia Type: General Operative Notes Findings: Dural tear, sealed primarily Closure Type: primary Specimen(s): none sent Prosthetic devices, grafts, tissues, transplants, or devices: Talisha BOGDAN-C Estimated Blood Loss (mL): 10 Procedure in detail: Patient was brought to the operating room and intubated on the table. A time-out was performed. Preoperative antibiotics were given. The neck was prepped and draped in the standard sterile fashion. Using a skin fold, we made a 3 cm oblique incision on the left side. We used Bovie to go through the platysma and then did a standard anterolateral blunt dissection down to the precervical fascia. Fascia was nicked and elevated up. We identified her old plate at C6-7 and cleared this off. The screws were removed and the plate was removed. The bone holes were filled with bone wax. We then subperiosteally elevated up the longus colli muscles. Self-retaining retractors were placed. Kaplan pins were placed. We then brought in the microscope. A scalpel used to perform an annulotomy. We then used a combination of pituitaries and curettes and Kerrison to perform a complete anterior diskectomy at C4-5. We used the bur to take down the pos terior osteophytes. We took down the PLL and used Kerrison to remove any posterior disc material and osteophytes. At the end we could from the nerve hook cephalad caudally and out the foramen and everything was opened. A small stab incision was made over the left anterior iliac crest. A Jamshidi needle was advanced into the pelvis and 2 mL of bone marrow was aspirated. We then used the trials. We then packed a 14 x 15 x 5 mm BOGDAN-C cage with Primagen bone graft and the iliac crest harvest. The cage was placed under fluoroscopic guidance. We then placed our two locking plates. We then moved down to the C5-6 level. Again a complete diskectomy was performed. We used the bur to take down the posterior osteophytes. We then went through the PLL and began removing the remainder of the disc material and osteophytes. There was 1 adherent area on the right superior endplate of C6. We began working around this drain to clear this off and there was a small dural tear. This had a flap that closed over and sealed it. We kept the area dry with Gelfoam and thrombin and then used a layer of Tisseal and had a watertight seal. We then placed another 14 x 15 x 5 mm cage with bone graft and placed our locking plates with fluoroscopy. The self-retaining retractors and Kaplan pins were removed and final x-rays taken. The wound was irrigated. There was no bleeding. More Tisseal was placed over the edges and top of the cage. The carotid was beating nicely. The platysma was closed. The superficial was closed. The skin was closed. A sterile dressing was placed. They were then extubated and brought to recovery room with no complications. Complications: none Post-operative Condition: stable Disposition: PACU Plan for aftercare: Overnight admission to the hospital. Plan to discharge tomorrow. Soft collar for comfort. We will keep the head of the bed elevated at least 30? overnight
[2020-01-09] MEDS: fentaNYL 100 MCG/2 ML INJ IV (10:25)
[2020-01-09] MEDS: OXYCODONE/ACETAMINOPHEN 5/325 TABLET 1 TAB PO (10:28)
--- NOTE | 2020-01-09 10:39 | SUR.PHASEI ---
Report called to TWIN Solorio on floor. Plan to transfer pt up to floor at 1100, pt now states pain improved at 4/10 now
--- NOTE | 2020-01-09 11:18 | PC.NURSE ---
Patient arrived to room from PACU, sleepy but awakens easily and answering questions. Patient states pain is now a 6/10 but able to drift off to sleep when undisturbed. Patient arrived with foot scd's in place. 88% on RA, shallow breaths, encouraged to deep breath and 2L NC put back on by denial resolution specialist prior to leaving, currently 95% on @L noted by continous pulse ox. Dressings intact. Soft collar in place for comfort, HOB greater than 30 degrees. Patient declines lunch at this time, call light and water placed within reach. Continue to monitor.
[2020-01-09] MEDS: CELECOXIB 200 MG CAPSULE 400 MG PO (11:36)
[2020-01-09] MEDS: LACTATED RINGERS 1,000 ML 125 ML IV ×2 (11:36→21:33)
--- NOTE | 2020-01-09 13:26 | CM.IDA ---
Initial DCP Assessment Note Pt is a 54 yo female, resident of [place], off the floor this AM for C4-5, C5-6 ACDF with cages w/ Dr Greene PCP: Adriana Cervantes Payer: [place] Reviewed chart, patient is an [employer] employee. Indp and active at baseline and has planned to return home w/assist from spouse and friends. No needs expected from DC planning team although will remain available in case this changes. PT/OT evals are pending, patient is POD #0 today. JEFFERY Franklin
[2020-01-09] MEDS: HYDROCODONE/ACET 5/325 TABLET 2 TAB PO ×3 (14:04→21:30)
--- NOTE | 2020-01-09 14:38 | OT.IP.EVAL ---
Current Diagnoses Spinal stenosis, cervical region (01/09/20) Strain of muscle, fascia and tendon at neck level, initial encounter (01/09/20) Arthrodesis status (01/09/20) Surgery Performed Operation Date: 01/09/20 07:45 Actual Procedures p C4-5 & C5-6 anterior cervical discectomy & fusion w/bone graft,possible removal of old plate - Nilson Greene MD Past Medical History (Last Updated 01/06/20 @ 12:17 by Jacque Bloom RN) Acid reflux Anxiety Seasonal asthma Surgical History (Last Updated 01/06/20 @ 12:07 by Jacque Bloom RN) History of arthroplasty of both hips History of hysterectomy (2004) Hx of cholecystectomy (~2005) Hx of colonoscopy Hx of eye surgery Hx of laparoscopy S/P cervical spinal fusion (2005) Occupational Therapy Inpatient Evaluation/Re-Eval M1 PT/OT-IP Prior Functional Status Start: 01/09/20 15:24 Freq: NEEDED Status: Active Protocol: Document 01/09/20 15:24 [facility] (Rec: 01/09/20 15:54 [facility] [id number]) Medical Review Prior Functional Status Communication Independent. Mobility and Gait Independent with no devices. Activities of Daily Living and IADL's Pt states able to do all ADL and IADl but mainly having pain in her neck. Social History Household Members spouse Living Arrangements House Number of Floors (Floors) One Floor Number of Stairs To Enter/Railing? 2 steps with a wall on the right side. Home Environment Standard Height Toilet,Tub/ Shower Home Equipment Hand Held Shower M2 OT-IP Current Condition Start: 01/09/20 15:24 Freq: Status: Active Protocol: Document 01/09/20 15:24 [facility] (Rec: 01/09/20 15:54 [facility] [id number]) Occupational Therapy Current Condition Current Condition Evaluation Date 01/09/20 Treatment Diagnosis Cervical herniation with radiculopathy, s/p C4-5, C5-6 ACDF with cages Diagnosis Onset Date 01/09/20 Post Operative Precautions Cervical Spine Precautions Soft Collar for Comfort,No Heavy Lifting,Log Roll Other Precautions HOB up at 30 degrees overnight . M3 OT- IP Subjective and Pain Start: 01/09/20 15:24 Freq: Status: Active Protocol: Document 01/09/20 15:24 [facility] (Rec: 01/09/20 15:54 [facility] [id number]) OT- Subjective Occupational Therapy Visit Type Type Initial Evaluation Visit Start Time 14:23 Visit Stop Time 14:38 Total Visit Minutes 15 Occupational Therapy Visit Comments Patient Comments Pt wanting to use the BSC. Patient/Caregiver Goals To go home. OT Pain Assessment Pain When Pain Assessed At Rest Pain Present Pain Present Pain Reported Location neck Intensity 8 Scale Used Numeric (0 - 10) M4 OT- IP ADL's Start: 01/09/20 15:24 Freq: Status: Active Protocol: Document 01/09/20 15:24 [facility] (Rec: 01/09/20 15:54 [facility] [id number]) OT [id number] Comments OT Self-Feeding Comments Not at meal time. OT ADL-Grooming Comments OT Grooming Comments Not performed. OT ADL-Oral Care Comments Oral Care Comments Educated pt to spit into a cup or lean at her hips to spit into the sink during oral care . OT ADL-Dressing General Eval Lower Body Dressing Ability Standby Assistance Comments OT Dressing Comments Pt able to comfortably cross her legs over to francisca/doff her socks. Pt states does not need feel like she needs any equipment needs for dressing. OT ADL-Toileting General Evaluation Toileting Ability Standby Assistance Comments OT Toileting Comments Pt encouraged to wear pad at night. Pt states aware to call her if needed to assist. OT ADL-Bathing Comments OT Bathing Comments Pt agreed would be best to have a shower chair at home. M5 OT- IP IADL's Start: 01/09/20 15:24 Freq: Status: Active Protocol: Document 01/09/20 15:24 [facility] (Rec: 01/09/20 15:54 [facility] [id number]) OT-Instrumental Activities of Daily Living Home Safety Awareness Awareness of Need for Assistance at Home Good Awareness Ability to Problem Solve Emergency Able to Problem Solve Situations Medication Management Medication Management No Deficits Identified Money Management Money Management No Deficits Identified Money Management Comments Pt aware to have pt's assist for needs as needed. Meal Preparation Meal Preparation Caregiver Provides Assist Construction Project Manager Construction Project Manager Caregiver Provides Assist M6 OT- IP Functional Cognition Start: 01/09/20 15:24 Freq: Status: Active Protocol: Document 01/09/20 15:24 [facility] (Rec: 01/09/20 15:54 [facility] [id number]) Cognitive Factors Limiting Selfcare Function Cognitive Ability Level of Alertness Alert Patient Orientation Name,Age,Birthday,Month,Date, Year,Day of Week,Place, Situation Attention Span Ability Capable of Focused Attention, Capable of Sustained Attention Ability to Follow Commands Able to Follow One Step Commands Memory Description No Deficits Noted Safety Awareness Underestimates Need for Assistance Cognitive Comments Cognitive Assessment Comments Pt a little impulsive and needing vc to follow log rolling as tends to want ot come up into long sitting for bed mobility needs. OT- Vision and Hearing OT- Hearing Assessment OT- Hearing Assessment WFL OT- Vision Assessment Visual Acuity Glasses All The Time Visual Attentiveness WFL Occular Pursuits WFL M7 OT- IP Mobility and Balance Start: 01/09/20 15:24 Freq: Status: Active Protocol: Document 01/09/20 15:24 [facility] (Rec: 01/09/20 15:54 [facility] [id number]) OT- Bed Mobility Assessment Rolling Type of Rolling Roll to Right Level of Assistance Standby Assistance Supine to Sit Supine to Sit Assist Standby Assistance Sit to Supine Sit to Supine Assist Standby Assistance OT-Transfer Assessment Sit to and From Stand Sit to and from Stand Standby Assistance Transfers Transfer Ability Standby Assistance Technique Transfer Destination Bed,Bedside Commode Devices Transfer Assistive Devices None Comments Mobility Comments Pt not able to wait for gait belt and able to transfer from the bed to BSc with SBA. OT- Gait Assessment Comments Gait Ability Comments Just transfer at this time. OT- Balance Assessment Sitting Balance and Reactions Static Sitting Balance Ability Normal Dynamic Sitting Balance Ability Normal Standing Balance and Reactions Static Standing Balance Ability Good M8 OT- IP Objective Assessments Start: 01/09/20 15:24 Freq: Status: Active Protocol: Document 01/09/20 15:24 [facility] (Rec: 01/09/20 15:54 [facility] [id number]) OT Gross Range of Motion Upper Extremity Range of Motion Assessment Within Functional Limits OT-Muscle Tone Assessment Muscle Tone WNL Yes M9 OT- IP Assessment and Plan Start: 01/09/20 15:24 Freq: Status: Active Protocol: Document 01/09/20 15:24 [facility] (Rec: 01/09/20 15:54 [facility] [id number]) OT Summary Assessment and Plan Potential Rehabilitation Potential Excellent Analytic Complexity at Evaluation Low Summary OT Impairments Pain Progress Towards Goals Progressing Toward Goals Assessment Summary Pt low complexity and main barriers are steps, a little impulsive, and reminders for cervical precautions. Pt has a supportive who will be home until Monday and having to return to work. Pt states has supportive neighbor that will help if needed. Pt agreeable to OT suggestions of shower chair, use of pads at night and swallowing strategies of eating softer food , making sure to eat upright and chew her food thoroughly. Pt not having any OT needs and therefore discharge from Ot services. PT to see pt again tomorrow for mobility needs. Goals Patient/Caregiver Education Goal Demonstrate Post-Op Precautions,Caregiver Independent Assisting Patient Days to Meet Goals 1 Frequency of Treatment Frequency Of Treatment Discharge Treatment Plan OT Treatment Plan Patient/Family Education, Discharge Planning Discharge Recommendations OT Discharge Recommendations Home with Assistance Home Equipment Needs Shower chair Transportation Needs at Discharge Private Vehicle
[2020-01-09] MEDS: hydrOXYzine pamoate 25 MG CAPSULE PO (15:28)
--- NOTE | 2020-01-09 17:18 | PT.IIE ---
Current Diagnoses Spinal stenosis, cervical region (01/09/20) Strain of muscle, fascia and tendon at neck level, initial encounter (01/09/20) Arthrodesis status (01/09/20) Surgery Performed Operation Date: 01/09/20 07:45 Actual Procedures p C4-5 & C5-6 anterior cervical discectomy & fusion w/bone graft,possible removal of old plate - Nilson Greene MD Surgical History (Last Updated 01/06/20 @ 12:07 by Jacque Bloom RN) History of arthroplasty of both hips History of hysterectomy (2004) Hx of cholecystectomy (~2005) Hx of colonoscopy Hx of eye surgery Hx of laparoscopy S/P cervical spinal fusion (2005) Medical History (Last Updated 01/06/20 @ 12:17 by Jacque Bloom RN) Acid reflux Anxiety Seasonal asthma Physical Therapy Inpatient Evaluation/Re-Eval M1 PT/OT-IP Prior Functional Status Start: 01/09/20 15:24 Freq: NEEDED Status: Active Protocol: Document 01/09/20 15:24 [facility] (Rec: 01/09/20 15:54 [facility] [id number]) Medical Review Prior Functional Status Communication Independent. Mobility and Gait Independent with no devices. Activities of Daily Living and IADL's Pt states able to do all ADL and IADl but mainly having pain in her neck. Social History Household Members spouse Living Arrangements House Number of Floors (Floors) One Floor Number of Stairs To Enter/Railing? 2 steps with a wall on the right side. Home Environment Standard Height Toilet,Tub/ Shower Home Equipment Hand Held Shower M2 PT-IP Current Condition Start: 01/09/20 13:54 Freq: NEEDED Status: Active Protocol: Document 01/09/20 16:50 [place] (Rec: 01/09/20 17:17 DE [id number]) Physical Therapy Current Condition Current Condition Evaluation Date 01/09/20 Treatment Diagnosis C4-6 ACDF Onset Date 01/09/20 Precautions Cervical Spine Precautions Soft Collar for Comfort,Soft Collar at all Times,No Heavy Lifting,Log Roll M3 PT-IP Subjective Start: 01/09/20 13:54 Freq: NEEDED Status: Active Protocol: Document 01/09/20 16:50 [place] (Rec: 01/09/20 17:17 DE [id number]) Subjective Physical Therapy Visit Type Type Initial Evaluation Visit Start Time 15:26 Visit Stop Time 15:51 Total Visit Minutes 25 Notes SPT Hans led session under direct supervision of PT Patti. Number of ACADEMIC DIRECTOR Visits 0 Physical Therapy Visit Comments Patient Comments Pt is agreeable to do PT. M4 PT-IP Mobility and Gait Start: 01/09/20 13:54 Freq: NEEDED Status: Active Protocol: Document 01/09/20 16:50 [place] (Rec: 01/09/20 17:17 DE [id number]) PT-Bed Mobility Assessment Supine to Sit Supine to Sit Standby Assistance,Head of Bed Elevated Sit to Supine Sit to Supine Standby Assistance,Head of Bed Elevated PT-Transfer Assessment Sit to and From Stand Sit to and from Stand Standby Assistance,Use of Upper Extremities Equipment Transfer Assistive Device Gait Belt Orthotic/Prosthetic Devices or Brace: No Transfers Transfer Destination Bed,Bedside Commode Transfer Technique Amb Transfer Ability Level of Assist Standby Assistance Comments Mobility Comments Pt was inclined in bed upon arrival. Pt's spouse was at bedside. Pt requested to use the bathroom. Pt completed supine to sit at L EOB with elevated HOB and SBA and sit to stand with SBA and use of BUE. Pt then amb ~2 ft to [facility] that was located on the R side with SBA. After voiding, pt transferred over to L side EOB SBA, where she participated in assessment. After assessment, pt stood up and amb ~40 ft total around foot of bed, in the hallway, to the window, and back to the room with CGA. Pt denied any dizziness or lightheadedness. Pt demonstrated normal gait pattern without any deviations . Pt went back to supine in bed with SBA. Call light placed within reach. Gait Assessment Gait Gait Assistance Required: Standby Assistance Distance (Feet) 40 Assistive Devices Assistive Device None,Gait Belt Orthotic/Prosthetic Devices or Brace: No Gait Deviations General Gait Pattern Within Normal Limits Comments Gait Comments See mobility comments. Stair Climbing Assessment Comments Stair Climbing Comments Not assessed. PT-Balance Assessment Sitting Balance and Reactions Static Sitting Balance Ability Normal Dynamic Sitting Balance Ability Normal Standing Balance and Reactions Static Standing Balance Ability Normal Dynamic Standing Balance Ability Normal M5 PT-IP Objective Assessments Start: 01/09/20 13:54 Freq: NEEDED Status: Active Protocol: Document 01/09/20 16:50 [place] (Rec: 01/09/20 17:17 DE [id number]) Orientation Orientation/Cognition Level of Alertness Alert Orientation Name,Age,Birthday,Month,Date, Year,Day of Week,Place, Situation Language Function Ability No Deficits Noted Safety Awareness Understands Safety Issues Memory Description No Deficits Noted Gross Range of Motion Upper Extremity ROM Assessment Bilaterally Impaired Impairments Shoulder ROM limited d/t neck pain. Strength Upper Extremity Strength Assessment Within Functional Limits Shoulder 4/5 Elbow 5/5 Hand 5/5 Comments Strength Comments Shoulder flexion limited d/t neck pain. Coordination Assessment Gross Coordination Gross Coordination WNL Sensation Assessment Sensation Gross Sensation WNL Light Touch Intact Muscle Tone Muscle Tone WNL Yes M6 PT-IP Treatment Start: 01/09/20 13:54 Freq: NEEDED Status: Active Protocol: Document 01/09/20 16:50 [place] (Rec: 01/09/20 17:17 DE [id number]) Physical Therapy Treatment Education Education Provided Precautions,Post-Op Packet, Safety Other Treatments Other Treatment Performed Pt was educated on cervical precautions, safety, and role of PT. M7 PT-IP Assessment and Plan Start: 01/09/20 13:54 Freq: NEEDED Status: Active Protocol: Document 01/09/20 16:50 [place] (Rec: 01/09/20 17:17 DE [id number]) PT Summary Assessment and Plan Potential Rehabilitation Potential Excellent Status of Condition at Evaluation Stable Summary Impairments Pain,ROM,Strength,Bed Mobility ,Transfers,Gait,Activity Tolerance Assessment Summary Dawn is a 54 yo female POD0 s/p C4-6 ACDF. At baseline, pt was IND for all mobility, amb , and ADLs without AD or limitations. On evaluation, pt was CGA-SBA for all mobility, transfers, and amb without AD . Pt is not safe for d/c yet. Pt will need to perform 2 steps up and down without railing and improve amb distance before d/c. PT anticipates pt will d/c home with assistance once medically cleared. Goals Bed Mobility Goal Independent Transfer Goal Independent Gait Goal Independent Gait Distance 200 Other Goals Pt will perform 3 steps x1 CGA without railing. Days to Meet Goals 3 Frequency of Treatment Frequency Of Treatment Twice a Day Treatment Plan Physical Therapy Treatment Plan Bed Mobility Training,Transfer Training,Gait Training, Therapeutic Exercise,Balance Retraining,Post Op Education, Discharge Planning,Hot or Cold Pack Other Recommendations and Next Treatment Stair climbing Focus Recommendations To Nursing Amount of Assist Needed Standby Assistance Discharge Recommendations PT Discharge Recommendations Home with Assistance Transportation Needs at Discharge Private Vehicle Treatment was provided by Hans Tijerina, SUKHWINDER and supervised by Patti Rincon, PT. I personally reviewed this note and agree with its contents.
[2020-01-09] MEDS: DOCUSATE 100 MG CAPSULE PO (21:30)
[2020-01-09] MEDS: SENNOSIDES 8.6 MG TABLET 17.2 MG PO (21:32)
[2020-01-09] MEDS: GABAPENTIN 300 MG CAPSULE PO (21:32)
[2020-01-10 04:10] VITALS: BP 149/93; PULSE 99; RESP 14; TEMP 36.7; O2SAT 96
[2020-01-10] MEDS: HYDROCODONE/ACET 5/325 TABLET 2 TAB PO ×2 (04:17→10:16)
[2020-01-10] MEDS: LACTATED RINGERS 1,000 ML 125 ML IV (04:38)
[2020-01-10 07:18] VITALS: BP 122/82; PULSE 97; RESP 16; TEMP 36.4; O2SAT 96
[2020-01-10] MEDS: CELECOXIB 200 MG CAPSULE PO (08:19)
[2020-01-10] MEDS: DOCUSATE 100 MG CAPSULE PO (08:19)
--- NOTE | 2020-01-10 09:30 | PM.PNPO.1 ---
Subjective Subjective Date Patient Seen: 01/10/20 Time Patient Seen: 09:30 Interval history: She is doing great. A little difficulty swallowing but getting food down well. Arms are fine. No headache or photophobia Exam Vital Signs (past 8 hours): - 01/10/20 04:10 01/10/20 07:18 Temperature 98.0 F 97.6 F Pulse Rate 99 H 97 H Respiratory Rate 14 16 Blood Pressure 149/93 H 122/82 Pulse Oximetry 96 96 Oxygen Delivery Method Room Air Oxygen Flow Rate 0 Const Orientation: alert and oriented x3 Back/Spine/Pelvis Other: CDI. 5/5 motor both upper extremities. PFSH Medical History (Updated 01/06/20 @ 12:17 by Jacque Bloom RN) Acid reflux Anxiety Seasonal asthma Surgical History (Updated 01/06/20 @ 12:07 by Jacque Bloom RN) History of arthroplasty of both hips History of hysterectomy (2004) Hx of cholecystectomy (~2005) Hx of colonoscopy Hx of eye surgery Hx of laparoscopy S/P cervical spinal fusion (2005) Social History household members: spouse Smoking Status: Never smoker alcohol intake: never Assessment & Plan Post-op Postoperative Procedures: Procedures Operation Date: 01/09/20 07:45 Actual Procedures Side Surgeon p C4-5 & C5-6 anterior cervical discectomy & fusion w/bone graft,possible removal of old plate Nilson Greene MD she is doing well. Discharge home after PT.
--- NOTE | 2020-01-10 09:30 | PM.DS.1 ---
History of Present Illness History of Present Illness Date Patient Seen: 01/10/20 Time Patient Seen: 09:30 Chief complaint: Cervical Fusion Anterior *OPB* Narrative: 54-year-old female with a history of a C6-7 ACDF in the past. She has been having progressive pain and weakness into the arms as well as loss of fine motor skills. Discharge Providers Provider Discharge Date: 01/10/20 Primary care physician: LOKI Smiley Consults: 01/06/20 12:31 Consult to Pastoral Services Routine Comment: INPT 01/08-wants to see a tree care foreman 01/09/20 11:04 Consult to Occupational Therapy Evaluate & Treat Comment: Physician Instructions: Evaluate and treat Consult to Physical Therapy Evaluate & Treat Comment: Physician Instructions: Evaluate and Treat Discharge provider: Nilson Greene MD Summary Hospital Course Discharge Diagnosis: Cervical stenosis with myelopathy Hospital Course: She is brought to the operating room on 01/09/2020 where she underwent a C4-5 and C5-6 ACDF as well as removal of her old C6-7 plate. She did have a small dural tear at the time of surgery but this was dry and sealed over with to seal. She had no side effects from this afterwards. The next day she was doing well with good pain relief. Status at Discharge Cognitive/behavioral status at discharge: oriented Functional status at discharge: uses cane/walker Overall status at discharge: patient is progressing back to baseline Exam Vital Signs (past 8 hours): - 01/10/20 04:10 01/10/20 07:18 Temperature 98.0 F 97.6 F Pulse Rate 99 H 97 H Respiratory Rate 14 16 Blood Pressure 149/93 H 122/82 Pulse Oximetry 96 96 Oxygen Delivery Method Room Air Oxygen Flow Rate 0 Const Orientation: alert and oriented x3 Back/Spine/Pelvis Other: CDI. 5/5 motor both upper extremities. [facility] Medical History (Updated 01/06/20 @ 12:17 by Jacque Bloom RN) Acid reflux Anxiety Seasonal asthma Surgical History (Updated 01/06/20 @ 12:07 by Jacque Bloom RN) History of arthroplasty of both hips History of hysterectomy (2004) Hx of cholecystectomy (~2005) Hx of colonoscopy Hx of eye surgery Hx of laparoscopy S/P cervical spinal fusion (2005) Social History household members: spouse Smoking Status: Never smoker alcohol intake: never Discharge Assessment & Plan Assessment and Plan Assessment: Cervical stenosis with myelopathy, now status post ACDF Plan of Treatment: Discharge home Discharge Plan Discharge Plan Patient Disposition: Home Provider Discharge Comment: Follow-up 1.5 weeks Discharge orders & Medications Discharge Orders: Discharge (Order); Ordered 01/10/20 Ordered By: Nilson Greene Prescriptions: New docusate sodium [DOK] 100 mg Capsule 100 mg PO BID PRN (Reason: constipation) Qty: 30 RF: 0 hydrocodone-acetaminophen 5-325 mg Tablet See Rx Instructions .ROUTE .COMPLEX PRN (Reason: Pain, Moderate (4-6)) Qty: 20 RF: 0 hydroxyzine pamoate 25 mg Capsule 25 mg PO Q4HR PRN (Reason: spasms) Qty: 15 RF: 0 Continued albuterol sulfate 90 mcg/actuation HFA aerosol inhaler 2 puff INHALATION Q4-6H PRN (Reason: shortness of breath or wheezing) Qty: 18 RF: 0 omeprazole 20 mg Capsule,Delayed Release(Dr/Ec) 20 mg PO DAILY PRN (Reason: acid reflux) RF: 0 Dulera 100-5 mcg/actuation Hfa Aerosol Inhaler 2 puff INHALATION BID RF: 0 loratadine-pseudoephedrine [Claritin-D 24 Hour] 10-240 mg Tablet Extended Release 24 Hr 1 tab PO DAILY RF: 0 Follow up/Referrals: Adriana Cervantes ARNP [Primary Care Provider] - Discharge Data Primary Care Provider: Adriana Cervantes Attending Provider: Nilson Greene
[2020-01-10] MEDS: SODIUM CHLORIDE 0.9% FLUSH 10 ML IV (10:09)
--- NOTE | 2020-01-10 10:48 | ST.IPSCREEN ---
Pt is status post ACDF surgery yesterday. Pt reported slightly sore throat with swallowing and raspy voice. Explained that these are typical after ACDF surg. Provided written information for blue folder at discharge. Pt indicated understanding an appreciation.
--- NOTE | 2020-01-10 11:25 | PT.IPTN ---
Current Diagnoses Spinal stenosis, cervical region (01/09/20) Strain of muscle, fascia and tendon at neck level, initial encounter (01/09/20) Arthrodesis status (01/09/20) Surgery Performed Operation Date: 01/09/20 07:45 Actual Procedures p C4-5 & C5-6 anterior cervical discectomy & fusion w/bone graft,possible removal of old plate - Nilson Greene MD Physical Therapy Treatment Note M2 PT-IP Current Condition Start: 01/09/20 13:54 Freq: NEEDED Status: Discharge Protocol: Document 01/09/20 16:50 [place] (Rec: 01/09/20 17:17 DE [id number]) Physical Therapy Current Condition Current Condition Evaluation Date 01/09/20 Treatment Diagnosis C4-6 ACDF Onset Date 01/09/20 Precautions Cervical Spine Precautions Soft Collar for Comfort,Soft Collar at all Times,No Heavy Lifting,Log Roll M3 PT-IP Subjective Start: 01/09/20 13:54 Freq: NEEDED Status: Discharge Protocol: Document 01/10/20 10:59 [place] (Rec: 01/10/20 13:23 KS [id number]) Subjective Physical Therapy Visit Type Type Treatment Note Visit Start Time 10:59 Visit Stop Time 11:25 Total Visit Minutes 26 Notes Pts present throughout treatment. Number of LIVE IN CAREGIVER Visits 1 Physical Therapy Visit Comments Patient Comments Pt is agreeable to do PT. M4 PT-IP Mobility and Gait Start: 01/09/20 13:54 Freq: NEEDED Status: Discharge Protocol: Document 01/10/20 10:59 [place] (Rec: 01/10/20 13:23 KS [id number]) PT-Bed Mobility Assessment Rolling Type of Rolling Log Rolling,Roll to Left Level of Assist Standby Assistance Supine to Sit Supine to Sit Standby Assistance Sit to Supine Sit to Supine Standby Assistance Scooting Scooting to Edge of Bed Standby Assistance PT-Transfer Assessment Sit to and From Stand Sit to and from Stand Standby Assistance,Use of Upper Extremities Equipment Transfer Assistive Device Gait Belt Orthotic/Prosthetic Devices or Brace: No Transfers Transfer Destination Bed,Toilet Transfer Technique pt ambulated w/o AD Transfer Ability Level of Assist Independent,Standby Assistance Comments Mobility Comments Pt in bed upon arrival from therapy. SBA for logroll to L and sidelying<>sit from flat bed. Pt sit<>stand SBA w/o AD and ambulated to toilet I. After toileting, pt ambulated ~200 ft to stairs SBA. Pt ascended/descended 3 steps w/ use of R wall ascending and wall and hand hold assist by pts descending. Pt and melody state they feel safe to complete stairs at home. She then ambulated ~100 ft back to room and performed logroll back into bed SBA. Gait Assessment Gait Gait Assistance Required: Standby Assistance,1 Person Assist Distance (Feet) 400 Able to Maintain Weight Bearing Status Yes During Gait Assistive Devices Assistive Device None,Gait Belt Orthotic/Prosthetic Devices or Brace: No Gait Deviations General Gait Pattern Within Normal Limits Comments Gait Comments See mobility comments. Stair Climbing Assessment Evaluation Level of Assist On Stairs Standby Assistance,Contact Guard Assistance,1 Person Assistance Devices Stair Climbing Assistive Devices Right Railing Technique/Endurance Stair Climbing Direction Ascend and Descend Stair Climbing Technique Step to Step Number of Steps Climbed 3 Stair Climbing Set # Repetitions (reps) 1 Comments Stair Climbing Comments Pt ascended/descended 3 steps w/ R wall asceding and wall w/ hand hold assist provided by descending. Pt used step to step patterna and had no balance deviations. Pts was able to provide safe HH assist. PT-Balance Assessment Sitting Balance and Reactions Static Sitting Balance Ability Normal Dynamic Sitting Balance Ability Normal Standing Balance and Reactions Static Standing Balance Ability Normal Dynamic Standing Balance Ability Normal M5 PT-IP Objective Assessments Start: 01/09/20 13:54 Freq: NEEDED Status: Discharge Protocol: Document 01/09/20 16:50 DE (Rec: 01/09/20 17:17 DE [id number]) Orientation Orientation/Cognition Level of Alertness Alert Orientation Name,Age,Birthday,Month,Date, Year,Day of Week,Place, Situation Language Function Ability No Deficits Noted Safety Awareness Understands Safety Issues Memory Description No Deficits Noted Gross Range of Motion Upper Extremity ROM Assessment Bilaterally Impaired Impairments Shoulder ROM limited d/t neck pain. Strength Upper Extremity Strength Assessment Within Functional Limits Shoulder 4/5 Elbow 5/5 Hand 5/5 Comments Strength Comments Shoulder flexion limited d/t neck pain. Coordination Assessment Gross Coordination Gross Coordination WNL Sensation Assessment Sensation Gross Sensation WNL Light Touch Intact Muscle Tone Muscle Tone WNL Yes M6 PT-IP Treatment Start: 01/09/20 13:54 Freq: NEEDED Status: Discharge Protocol: Document 01/10/20 10:59 [place] (Rec: 01/10/20 13:23 KS [id number]) Physical Therapy Treatment Education Education Provided Precautions,Post-Op Packet, Safety Other Treatments Other Treatment Performed Pt was educated on cervical precautions, safety, and given info for attaining shower chair if needed. M7 PT-IP Assessment and Plan Start: 01/09/20 13:54 Freq: NEEDED Status: Discharge Protocol: Document 01/10/20 10:59 [place] (Rec: 01/10/20 13:23 [place] [id number]) PT Summary Assessment and Plan Potential Rehabilitation Potential Excellent Status of Condition at Evaluation Stable Summary Impairments Pain,ROM,Strength,Bed Mobility ,Transfers,Gait,Activity Tolerance Progress Towards Goals Progressing Toward Goals Assessment Summary Pt SBA for all bed mobility, transfers, and ambulation. She had good awareness to cervical precautions and performed logroll correctly. Pt tolerated ~400 ft ambulation w/ SBA and no AD. She ascended/descended 3 steps w/ R wall and hand hold assist by hsuband safely w/o any LOB and step to pattern. Pt and state they feel safe to return home. Pt states she will either purchase shower chair or acquire from [employer]. Goals Bed Mobility Goal Independent Transfer Goal Independent Gait Goal Independent Gait Distance 200 Other Goals Pt will perform 3 steps x1 CGA without railing. Days to Meet Goals 3 Frequency of Treatment Frequency Of Treatment Twice a Day Treatment Plan Physical Therapy Treatment Plan Bed Mobility Training,Transfer Training,Gait Training, Therapeutic Exercise,Balance Retraining,Post Op Education, Discharge Planning,Hot or Cold Pack Recommendations To Nursing Amount of Assist Needed Standby Assistance Discharge Recommendations PT Discharge Recommendations Home with Assistance Transportation Needs at Discharge Private Vehicle
--- NOTE | 2020-01-10 12:57 | PC.NURSE ---
All patient education given regarding new medications, diet, activity, follow up appt's, ss of infection, ss of stroke, fall reduction. Patient verbalized understanding of all discharge teaching. Patient left facility with all belongings and medication from pharmacy. Patient left facility with paper prescriptions in hand. Patient left facility via wheelchair in private vehicle.
--- NOTE | 2020-01-10 13:38 | CM.DPNOTE ---
DC Note DC order in place this morning; patient eager to return home and feels confident about her plan- home w/spouse to assist. No needs identified from this DIGITAL CAMPAIGN SPECIALIST today. MICHAEL
== END 2020-01-10 13:01 | disposition home or self-care (01) ==
LOC: OR 06:20 → AC 06:20
PROVIDERS: PCP Internal Medicine; Referring Provider Internal Medicine; Visit Provider Orthopaedic Surgery
PROC: (CPT 22551; principal; 2020-01-09 07:45)
DX: M50.121 Cervical disc disorder at C4-C5 level with radiculopathy (principal); M48.02 Spinal stenosis, cervical region; J45.909 Unspecified asthma, uncomplicated; Z98.1 Arthrodesis status; K21.9 Gastro-esophageal reflux disease without esophagitis; F17.210 Nicotine dependence, cigarettes, uncomplicated
CPT/HCPCS: 22551; 22552; 22853 ×2; 20939; 22855; 72040; 76000; 82962; 97116; 97161; 97165; 97530; C1776; A9270; J0131; J0330; J0690; J1100; J1170; J2405; J2704; J2765; J3010

== ENCOUNTER 2020-02-08 07:15 | Emergency (ER) | payer OTHER, SELFPAY ==
[2020-01-09 11:09] VITALS: BMI 30.1
[2020-02-08] VITALS (9 sets, daily range): BP systolic 123–142; BP diastolic 64–81; PULSE 72–89; RESP 13–35; O2SAT 96–100; BMI 30.2
--- NOTE | 2020-02-08 07:26 | ED.ABDPAIN ---
HPI - Abdominal Pain General Chief Complaint: Abdominal Pain Stated Complaint: Sever Stomach pain and sweating Time Seen by Provider: 02/08/20 07:18 Source: patient Mode of arrival: Ambulatory Limitations: no limitations History of Present Illness HPI narrative: 54-year-old female with history of chronic neck problems, GERD and bronchospasm with a neck fusion about a month ago presents in 11/15 lower abdominal pain that started about 15 minutes ago suddenly. She denies any obvious provocation, palliation or radiation. She denies any history of the same but does state that she has IBS. She has had some loose stools as of late but denies any blood. She has had no runny nose, sore throat, chest pain, shortness of breath dizziness, lightheadedness or fever. She states that when the pain started she became sweaty. MD complaint: abdominal pain Onset (ago): minute(s) Pain Consistency: constant Location: suprapubic Severity: severe Severity scale (1-10): 10 Quality: stabbing and sharp Radiation: none Migration to: no migration Relieving factors: nothing Exacerbating factors: nothing Associated symptoms: diarrhea Related Data Home Medications Medication Instructions Recorded Confirmed omeprazole 20 mg PO DAILY PRN 01/06/20 01/09/20 Dulera 2 puff INHALATION BID 01/08/20 01/08/20 loratadine-pseudoephedrine 1 tab PO DAILY 01/09/20 01/09/20 [Claritin-D 24 Hour] Previous Rx's Medication Instructions Recorded albuterol sulfate 2 puff INHALATION Q4-6H PRN #18 07/25/18 gram docusate sodium [DOK] 100 mg PO BID PRN #30 cap 01/10/20 hydrocodone-acetaminophen See Rx Instructions .ROUTE 01/10/20 .COMPLEX PRN #20 tab hydroxyzine pamoate 25 mg PO Q4HR PRN #15 cap 01/10/20 ciprofloxacin HCl 500 mg PO BID #10 tab 02/08/20 hydrocodone-acetaminophen 1 tab PO Q4-6H PRN #10 tab 02/08/20 metronidazole [Flagyl] 500 mg PO Q8H 5 Days #15 tab 02/08/20 ondansetron 4 mg PO TID-QID PRN #10 tab 02/08/20 Allergies Allergy/AdvReac Type Severity Reaction Status Date / Time azithromycin AdvReac Intermediate jittery Verified 01/09/20 06:44 Review of Systems Review of Systems ROS Unobtainable: All systems reviewed & are unremarkable except as noted in HPI and below Constitutional Constitutional: Denies chills, Denies fatigue, Denies fever(s), Denies frequent falls, Denies lethargy and Denies weakness Comments: Sweaty at the onset of the pain, improving on arrival Eyes Eyes: Denies change in vision, Denies eye discharge, Denies irritation and Denies loss of vision ENT Ears, Nose, Mouth, and Throat: Denies change in voice, Denies dizziness, Denies neck pain, Denies sore throat and Denies throat swelling Cardiovascular Cardiovascular: Denies chest pain, Denies irregular heart rhythm, Denies lightheadedness, Denies palpitations, Denies dyspnea, Denies dyspnea on exertion and Denies orthopnea Respiratory Respiratory: Denies cough, Denies dyspnea, Denies dyspnea on exertion and Denies wheezing Gastrointestinal Gastrointestinal: Reports abdominal pain, Denies change in bowel habits, Denies diarrhea, Reports nausea and Denies vomiting Musculoskeletal Musculoskeletal: Denies neck pain and Denies numbness Integumentary/Breasts Skin/Breast: Denies pruritus, Denies erythema, Denies rash and Denies wounds Neurologic Neurologic: Denies behavioral changes, Denies confusion, Denies dizziness, Denies frequent falls, Denies loss of vision, Denies numbness and Denies weakness Psychiatric Psychiatric: Denies anxiety, Denies behavioral changes, Denies confusion, Denies depression, Denies homicidal ideation and Denies suicidal ideation Endocrine Endocrine: Denies fatigue, Denies flushing and Denies palpitations Hematologic/Lymphatic Hematologic/Lymphatic: Denies easy bruising Allergic/Immunologic Allergic/Immunologic: Denies urticaria, Denies throat swelling and Denies wheezing Patient History Medical History Acid reflux Anxiety Seasonal asthma Surgical History History of arthroplasty of both hips History of hysterectomy (2004) Hx of cholecystectomy (~2005) Hx of colonoscopy Hx of eye surgery Hx of laparoscopy S/P cervical spinal fusion (2005) Social History household members: spouse Smoking Status: Never smoker alcohol intake: never Smoking Status: Never smoker Substance Use Type: does not use Exam Narrative Exam Narrative: GENERAL: [54] year old patient appears stated age. Well-nourished, well-developed patient, in mild distress. Anxious, clearly uncomfortable HEAD: Atraumatic. Normocephalic. EYES: Pupils equal round and reactive. Extraocular motions intact. No scleral icterus. No injection or drainage. ENT: Nose without bleeding, purulent drainage. Throat without erythema, tonsillar hypertrophy or exudate. Airway patent. NECK: Trachea midline. Non tender CARDIOVASCULAR: Regular rate and rhythm without murmurs, gallops, or rubs. RESPIRATORY: Clear to auscultation. Breath sounds equal bilaterally. No wheezes, rales, or rhonchi. GASTROINTESTINAL: Abdomen soft, Lower abdomen tenderness to palp, nondistended. Bowel sounds present in all 4 quadrants EXTREMITIES: No edema or joint tenderness. BACK: Nontender without deformity or crepitance. No flank tenderness. NEURO: AOx3. SKIN: No rash or erythema of visible areas. Diaphoretic, clammy Initial Vital Signs Initial Vital Signs: Vital Signs Pulse Rate 89 02/08/20 07:28 Respiratory Rate 18 02/08/20 07:28 Blood Pressure 127/70 02/08/20 07:28 Pulse Oximetry 97 02/08/20 07:28 Course Orders Ordered: ED Orders 02/08/20 07:27 EKG-12 Lead Stat 02/08/20 07:28 XR acute abdomen series Stat 02/08/20 07:30 Complete Blood Count AUTO DIFF Stat Comprehensive Metabolic Panel Stat Lipase Stat Troponin & CK Cardiac Panel Stat 02/08/20 08:23 CT abdomen pelvis w con Stat Sodium Chloride (Normal Saline 0.9%) 1,000 mls @ 150 mls/hr IV CONT KEIRY Last Admin: 02/08/20 09:20 Dose: Not Given Documented by: EARL Discontinued Medications Hydromorphone HCl (Hydromorphone 0.5 Mg Inj) 0.5 mg IV NOW ONE Stop: 02/08/20 07:54 Last Admin: 02/08/20 07:56 Dose: 0.5 mg Documented by: EARL Lactated Ringer's (Lactated Ringers) 1,000 mls @ 1,000 mls/hr IV BOLUS ONE Stop: 02/08/20 08:25 Last Infusion: 02/08/20 10:35 Dose: 0 mls/hr Documented by: Admin: 02/08/20 07:44 Dose: 1,000 mls/hr Documented by: EARL Ondansetron HCl (Ondansetron 4 Mg/2 Ml Inj) 4 mg IV NOW ONE Stop: 02/08/20 07:27 Last Admin: 02/08/20 07:44 Dose: 4 mg Documented by: EARL Reevaluation(s) Reevaluation #1: Significant improvement after the above-stated therapy Consultations Consultation #1: Discussed with on-call surgery. He has reviewed the history, physical and CT findings. Nothing significant. Recommends outpatient order for stool sample (GI panel), antibiotics including Cipro Flagyl and follow-up Vital Signs Vital signs: Vital Signs - 8 hr 02/08/20 07:28 02/08/20 07:30 02/08/20 08:09 Pulse Rate 87 87 79 Respiratory Rate 33 H 35 H 23 Blood Pressure 127/70 123/64 Pulse Oximetry 97 98 96 02/08/20 08:30 02/08/20 09:00 02/08/20 09:30 Pulse Rate 80 78 73 Respiratory Rate 24 15 13 Blood Pressure Pulse Oximetry 100 97 97 02/08/20 09:41 02/08/20 10:00 02/08/20 11:00 Pulse Rate 77 73 72 Respiratory Rate 15 27 H 14 Blood Pressure 133/66 142/70 H 132/81 Pulse Oximetry 99 99 98 MDM - Abdominal Pain Lab Data Result diagrams: 02/08/20 07:30 02/08/20 07:30 Labs: Lab Results 02/08/20 02/08/20 02/08/20 Range/Units 07:30 07:30 07:30 WBC 4.9 (4.5-11.0) X10^3/uL RBC 4.62 (4.0-5.2) X10^6/uL Hgb 13.6 (12.0-16.0) g/dL Hct 41.9 (36-46) % MCV 90.7 (80-100) fL MCH 29.5 (26-34) PG MCHC 32.5 (30-36) % RDW 13.7 (11.6-14.8) % Plt Count 293 (150-400) X10^3/uL Neut % (Auto) 50.6 (50-75) % Lymph % (Auto) 34.8 (25-40) % [place] % (Auto) 10.1 (3-14) % Eos % (Auto) 3.3 (2-4) % Baso % (Auto) 1.2 (0-2) % Neut # (Auto) 2500 (3121-9898) /uL Lymph # (Auto) 1700 (8602-2104) /uL [place] # (Auto) 500 (0-900) /uL Eos # (Auto) 200 (0-450) /uL Baso # (Auto) 100 (0-100) /uL Sodium 137 (137-145) mmol/L Potassium 4.3 (3.4-5.1) mmol/L Chloride 107 (98-107) mmol/L Carbon Dioxide 26 (22-32) mmol/L BUN 13 (7-17) mg/dL Creatinine 0.72 (0.52-1.04) mg/dL Estimated GFR > 60.0 (>60) mL/min BUN/Creatinine Ratio 18.1 (6-22) Glucose 150 H (70-100) mg/dL Calcium 9.1 (8.4-10.2) mg/dL Total Bilirubin 0.3 (0.2-1.3) mg/dL AST 31 (14-36) IU/L ALT 24 (<35) IU/L Alkaline Phosphatase 115 (38-126) U/L Total Creatine Kinase 94 (30-135) U/L CK-MB (CK-2) TNP CK-MB (CK-2) Rel Index TNP Troponin I < 0.012 (0.01-0.034) ng/mL Total Protein 7.4 (6.3-8.2) g/dL Albumin 4.3 (3.5-5.0) g/dL Globulin 3.1 (1.7-4.1) g/dL Albumin/Globulin Ratio 1.4 (1.0-2.8) Lipase 134 (23-300) U/L Point of care testing: Urine Dip Bedside Urine Glucose Negative Bedside Urine Bilirubin - Negative Bedside Urine Ketone - Negative Urine Specific [place] 1.010 Bedside Urine Occult Blood - Negative Bedside Urine pH 7.0 Bedside Urine Protein - Negative Bedside Urine Urobilinogen - Negative Bedside Urine Nitrite - Negative Bedside Urine Leukocytes - Negative Esterase Imaging Data CT scan - abdomen/pelvis: Radiologist's Impression: Perla Ferrara DO Find Patient Imaging - Dawn Nguyen 54 F 1965 ACTIVITY DATE EXAM STATUS AUTHOR 02/08/20 08:23 Signed Volodymyr Mcconnell 02/08/20 07:[address] [id number] Scan ReportSigned Patient: Dawn Nguyen KMR#: [id number]: 1965Acct:[id number]/Sex: 54 / FDate of Service: 02/08/20Loc: EDAccession Number: [id number] Procedure: CT abdomen pelvis w con Ordering Provider: Teodoro Ferrara D.O. PROCEDURE: CT ABDOMEN PELVIS W CON INDICATIONS: severe lower abdominal pain TECHNIQUE: After the administration of intravenous contrast, 5 mm thick sections acquired from the diaphragm to the symphysis. 5 mm coronal and sagittal reformats were acquired. For radiation dose reduction, the following was used: automated exposure control, adjustment of mA and/or kV according to patient size. COMPARISON: None. FINDINGS: Image quality: Excellent. ABDOMEN: Lung bases: Lung bases are clear. Heart size is normal. Solid organs: Liver is normal in size and enhancement. Gallbladder is surgically absent. Biliary system is mildly distended which is within normal limits for post cholecystectomy patient. Pancreas enhances normally. Spleen is normal in size and enhancement. No adrenal nodules. Kidneys demonstrate normal size and enhancement, without hydronephrosis. Peritoneum and bowel: Small hiatal hernia is seen. There is suggestion of distal gastric wall thickening in the region of pylorus with narrowing of the lumen. Mildly fluid distended small bowel loops and proximal colon loops are seen without significant bowel wall thickening or mesenteric fat stranding. No focal transition point is identified. Appendix is visualized in right lower quadrant and is within normal limits. There is no abscess collection. No free fluid or free air. Nodes and vessels: No retroperitoneal or mesenteric adenopathy by size criteria. Aorta and inferior vena cava are normal in size. Miscellaneous: No ventral hernias. PELVIS: Genitourinary: Bladder wall thickness is grossly within normal limits. Evaluation is limited due to significant beam hardening artifacts from bilateral hip prosthesis. Miscellaneous: No inguinal hernias or adenopathy. Bones: No suspicious bony lesions. Patient is status post bilateral total hip arthroplasty. No vertebral body compression fractures. IMPRESSION: 1. Nonspecific mildly fluid distended small bowel loops and proximal colon loops with walled enhancement. No significant wall thickening or mesenteric fat stranding is seen. Finding most likely represent infectious or inflammatory enterocolitis. No abscess collection. No free fluid or free air. No evidence of high-grade obstruction. 2. Suggestion of distal gastric/pyloric wall thickening with narrowing of the lumen concerning for gastritis. 3. Prior cholecystectomy. Likely chronic mild biliary ductal dilatation within normal limits for post cholecystectomy patients. Dictated by: Volodymyr Mcconnell M.D. on 02/08/2020 at 8:57 Approved by: Volodymyr Mcconnell M.D. on 02/08/2020 at 9:03 ECG Data Attestation: I personally reviewed and interpreted this ECG as follows: Interpretation: EKG is normal sinus rhythm rate [ 82] and free of any signs of ischemia or ectopy. No ST segmental elevation or depression. No T wave inversions Discharge Plan Departure Patient Disposition: Home Clinical Impression: Enteritis Abdominal pain Qualifiers: Abdominal location: generalized Qualified Code(s): R10.84 - Generalized abdominal pain Instructions: DI for Enteritis Activity Restrictions/Additional Instructions: *You have been diagnosed with [abdominal pain, likely due to enteritis. Your lab work and imaging is very reassuring. I have discussed the case with our on-call surgeon Dr. iDckson and we agree that the following medications are most appropriate] *What to do: *Take medications as directed *Follow up with your primary care provider in 2-3 days, call for an appointment. Let them know you were seen in the Emergency Department and that we ask that you be seen in follow up *Return to ER if you should have any new, worsening or concerning symptoms, such as [increasing pain, fever over 101 F, other bothersome symptoms] Prescriptions: New ciprofloxacin HCl 500 mg tablet 500 mg PO BID Qty: 10 RF: 0 metronidazole [Flagyl] 500 mg tablet 500 mg PO Q8H 5 Days Qty: 15 RF: 0 hydrocodone-acetaminophen 5-325 mg tablet 1 tab PO Q4-6H PRN (Reason: pain) Qty: 10 RF: 0 ondansetron 4 mg tablet,disintegrating 4 mg PO TID-QID PRN (Reason: nausea and vomiting) Qty: 10 RF: 0 No Action albuterol sulfate 90 mcg/actuation HFA aerosol inhaler 2 puff INHALATION Q4-6H PRN (Reason: shortness of breath or wheezing) Qty: 18 RF: 0 omeprazole 20 mg Capsule,Delayed Release(Dr/Ec) 20 mg PO DAILY PRN (Reason: acid reflux) RF: 0 Dulera 100-5 mcg/actuation Hfa Aerosol Inhaler 2 puff INHALATION BID RF: 0 loratadine-pseudoephedrine [Claritin-D 24 Hour] 10-240 mg Tablet Extended Release 24 Hr 1 tab PO DAILY RF: 0 docusate sodium [DOK] 100 mg Capsule 100 mg PO BID PRN (Reason: constipation) Qty: 30 RF: 0 hydrocodone-acetaminophen 5-325 mg Tablet See Rx Instructions .ROUTE .COMPLEX PRN (Reason: Pain, Moderate (4-6)) Qty: 20 RF: 0 hydroxyzine pamoate 25 mg Capsule 25 mg PO Q4HR PRN (Reason: spasms) Qty: 15 RF: 0 Referrals: Adriana Cervantes ARNP [Primary Care Provider] -
--- NOTE | 2020-02-08 07:28 | DI.RAD.S_ITS ---
PROCEDURE: XR ACUTE ABDOMEN SERIES INDICATIONS: Abdominal pain TECHNIQUE: One view chest and two views of the abdomen were acquired. COMPARISON: [facility], CR, XR CHEST 1V, 07/25/2018, 6:41. FINDINGS: Surgical changes and devices: Bilateral hip arthroplasty hardware can be seen. Cholecystectomy clips are seen. Cervical fixation hardware is seen. Chest: Lungs are clear. Heart size is normal. No pleural effusions. No pneumoperitoneum. Abdomen: Bowel gas pattern is normal. Focal calcification can be seen overlying the left liver. Visualized solid organ contours appear normal. Bones: No suspicious bony lesions. Age-appropriate bony degenerative changes are seen. S-shaped scoliotic curvature is seen. IMPRESSION: A nonobstructive bowel gas pattern is seen. Clear lungs. If clinically appropriate, please consider a repeat plain film study or a dedicated CT of the abdomen and pelvis, if the patient's symptoms persist or worsen. Postoperative and degenerative changes are seen. Focal calcification seen overlying the left liver. Dictated by: Cruzito Jolley M.D. on 02/08/2020 at 7:11 Approved by: Cruzito Jolley M.D. on 02/08/2020 at 7:12
[2020-02-08 07:41] LABS: Add Manual Diff / Slide Review NO; Basophils Absolute Auto 100 /uL (0-100); Basophils Percent Auto 1.2 % (0-2); Eosinophils Absolute Auto 200 /uL (0-450); Eosinophils Percent Auto 3.3 % (2-4); Hematocrit 41.9 % (36-46); Hemoglobin 13.6 g/dL (12.0-16.0); Lymphocytes Absolute Auto 1700 /uL (1100-4500); Lymphocytes Percent Auto 34.8 % (25-40); Mean Corpuscular HGB Conc 32.5 % (30-36); Mean Corpuscular Hemoglobin 29.5 PG (26-34); Mean Corpuscular Volume 90.7 fL (80-100); Monocytes Absolute Auto 500 /uL (0-900); Monocytes Percent Auto 10.1 % (3-14); Neutrophils Absolute Auto 2500 /uL (1500-7000); Neutrophils Percent Auto 50.6 % (50-75); Platelet Count 293 X10^3/uL (150-400); Red Blood Cell Count 4.62 X10^6/uL (4.0-5.2); Red Cell Distribution Width 13.7 % (11.6-14.8); White Blood Cell Count 4.9 X10^3/uL (4.5-11.0)
[2020-02-08] MEDS: ONDANSETRON 4 MG/2 ML INJ IV (07:44)
[2020-02-08] MEDS: LACTATED RINGERS 1,000 ML 1000 ML IV (07:44)
[2020-02-08 07:53] LABS: Creatine Kinase 94 U/L (30-135)
[2020-02-08 07:55] LABS: Alanine Aminotransferase 24 IU/L (<35); Albumin 4.3 g/dL (3.5-5.0); Albumin Globulin Ratio 1.4 (1.0-2.8); Alkaline Phosphatase 115 U/L (38-126); Aspartate Aminotransferase 31 IU/L (14-36); BUN Creatinine Ratio 18.1 (6-22); Bilirubin Total 0.3 mg/dL (0.2-1.3); Blood Urea Nitrogen 13 mg/dL (7-17); Calcium 9.1 mg/dL (8.4-10.2); Carbon Dioxide 26 mmol/L (22-32); Chloride 107 mmol/L (98-107); Estimated Glomerular Filt Rate > 60.0 mL/min (>60); Globulin 3.1 g/dL (1.7-4.1); Glucose 150 mg/dL (70-100); HEMOLYSIS < 15 (0-50); Lipase 134 U/L (23-300); Potassium 4.3 mmol/L (3.4-5.1); Sodium 137 mmol/L (137-145); Total Protein 7.4 g/dL (6.3-8.2)
--- NOTE | 2020-02-08 07:55 | PC.NURSE ---
tool radial drill press set up operator came to take patient to x ray. patient requested pain medication piror to xray. Provider notified and gave verbal order for 0.5mg dilaudid IV.
[2020-02-08] MEDS: HYDROMORPHONE 0.5 MG INJ IV (07:56)
[2020-02-08 08:07] LABS: Troponin I < 0.012 ng/mL (0.01-0.034)
--- NOTE | 2020-02-08 08:23 | DI.CT.S_ITS ---
PROCEDURE: CT ABDOMEN PELVIS W CON INDICATIONS: severe lower abdominal pain TECHNIQUE: After the administration of intravenous contrast, 5 mm thick sections acquired from the diaphragm to the symphysis. 5 mm coronal and sagittal reformats were acquired. For radiation dose reduction, the following was used: automated exposure control, adjustment of mA and/or kV according to patient size. COMPARISON: None. FINDINGS: Image quality: Excellent. ABDOMEN: Lung bases: Lung bases are clear. Heart size is normal. Solid organs: Liver is normal in size and enhancement. Gallbladder is surgically absent. Biliary system is mildly distended which is within normal limits for post cholecystectomy patient. Pancreas enhances normally. Spleen is normal in size and enhancement. No adrenal nodules. Kidneys demonstrate normal size and enhancement, without hydronephrosis. Peritoneum and bowel: Small hiatal hernia is seen. There is suggestion of distal gastric wall thickening in the region of pylorus with narrowing of the lumen. Mildly fluid distended small bowel loops and proximal colon loops are seen without significant bowel wall thickening or mesenteric fat stranding. No focal transition point is identified. Appendix is visualized in right lower quadrant and is within normal limits. There is no abscess collection. No free fluid or free air. Nodes and vessels: No retroperitoneal or mesenteric adenopathy by size criteria. Aorta and inferior vena cava are normal in size. Miscellaneous: No ventral hernias. PELVIS: Genitourinary: Bladder wall thickness is grossly within normal limits. Evaluation is limited due to significant beam hardening artifacts from bilateral hip prosthesis. Miscellaneous: No inguinal hernias or adenopathy. Bones: No suspicious bony lesions. Patient is status post bilateral total hip arthroplasty. No vertebral body compression fractures. IMPRESSION: 1. Nonspecific mildly fluid distended small bowel loops and proximal colon loops with walled enhancement. No significant wall thickening or mesenteric fat stranding is seen. Finding most likely represent infectious or inflammatory enterocolitis. No abscess collection. No free fluid or free air. No evidence of high-grade obstruction. 2. Suggestion of distal gastric/pyloric wall thickening with narrowing of the lumen concerning for gastritis. 3. Prior cholecystectomy. Likely chronic mild biliary ductal dilatation within normal limits for post cholecystectomy patients. Dictated by: Volodymyr Mcconnell M.D. on 02/08/2020 at 8:57 Approved by: Volodymyr Mcconnell M.D. on 02/08/2020 at 9:03
== END 2020-02-08 11:03 | disposition home or self-care (01) ==
PROVIDERS: Emergency Provider Emergency Medicine; PCP Internal Medicine
DX: K52.9 Noninfective gastroenteritis and colitis, unspecified (principal); R10.84 Generalized abdominal pain; K21.9 Gastro-esophageal reflux disease without esophagitis; R11.0 Nausea
CPT/HCPCS: 36415; 74022; 74177; 80053; 81003; 82550; 83690; 84484; 85025; 93005; 96361; 96374; 96375; 99283; 99284; J1170; J2405; Q9967

== ENCOUNTER → 2020-02-09 11:53 | Outpatient (CLI) | payer OTHER, SELFPAY ==
[2020-01-09 11:09] VITALS: BMI 30.1
[2020-02-09 13:25] LABS: Adenovirus F 40/41 Not Detected (Not Detect); Astrovirus Not Detected (Not Detect); Campylobacter Not Detected (Not Detect); Clostridium difficile toxin AB Not Detected (Not Detect); Cryptosporidium Not Detected (Not Detect); Cyclospora cayetanensis Not Detected (Not Detect); Entamoeba histolytica Not Detected (Not Detect); Enteroaggregative E.coli Not Detected (Not Detect); Enteropathogenic E.coli Not Detected (Not Detect); Enterotoxigenic E.coli It/st Not Detected (Not Detect); Giardia lamblia Not Detected (Not Detect); Norovirus GI/GII Not Detected (Not Detect); Plesiomonsa shigelloides Not Detected (Not Detect); Rotavirus A Not Detected (Not Detect); Salmonella Not Detected (Not Detect); Sapovirus Not Detected (Not Detect); Shiga-like toxin-prod E.coli Not Detected (Not Detect); Shigella/Enteroinvasive E.coli Not Detected (Not Detect); Vibrio Not Detected (Not Detect); Vibrio cholerae Not Detected (Not Detect); Yersinia enterocolitica Not Detected (Not Detect)
== END ==
PROVIDERS: PCP Internal Medicine; Referring Provider Specialist; Visit Provider Emergency Medicine
DX: K52.9 Noninfective gastroenteritis and colitis, unspecified (principal)
CPT/HCPCS: 87507